=== PATIENT | male | born 1935 | race Caucasian/White ===

== ENCOUNTER 2016-12-03 10:27 | Observation (INO) ==
--- NOTE | 2016-12-03 10:42 | Emergency Department Note ---
Disposition Clinical Impression: Hypertension Qualifiers: Hypertension type: essential hypertension Qualified Code(s): I10 - Essential ( primary) hypertension Altered mental status Qualifiers: Altered mental status type: unspecified Qualified Code(s): R41.82 - Altered mental status, unspecified Disposition: Admitted As Inpatient Condition: Fair Referrals: Janell Rossi MD [Primary Care Provider] - Forms: ED Satisfaction Letter Time of Disposition: 12:41 Altered Mental Status HPI - General Chief Complaint: ED Altered Mental Status Stated Complaint: AMS Time Seen by Provider: 12/03/16 10:31 Source: patient, EMS Limitations: no limitations Nursing Notes Reviewed: Yes Vital Signs Reviewed: Yes - History of Present Illness HPI Narrative: 81-year-old who apparently this morning woke up was feeling pretty good went to eat developed some confusion and diaphoresis no pain to the back of his head. 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 by: caregiver Pain Severity: moderate Context: unknown Associated symptoms: Reports: headaches - Related Data Home Medications Medication Instructions Recorded Confirmed Atenolol [Tenormin] 50 mg PO DAILY 11/16/15 11/16/15 Cholestyramine 4 gm PO BIDAC 11/16/15 11/16/15 Cyanocobalamin (Vitamin B-12) 1,000 mcg PO DAILY 11/16/15 11/16/15 [Vitamin B12] Ergocalciferol (VITAMIN D2) 2,000 unit PO DAILY 11/16/15 11/16/15 [Vitamin D2] Levothyroxine Sodium [Tirosint] 25 mcg PO DAILY 11/16/15 11/16/15 Paroxetine HCl [Paroxetine] 40 mg PO DAILY 11/16/15 11/16/15 Warfarin [Coumadin] 5 mg PO DAILY 11/16/15 11/16/15 Previous Rx's Medication Instructions Recorded Hydrocodone/Acetaminophen [[place] 1 tab PO Q4H PRN #15 tab 11/16/15 5-325 Tablet] Allergies Allergy/AdvReac Type Severity Reaction Status Date / Time Amoxicillin Allergy See Verified 08/24/15 10:53 Comments Penicillins [PCN] Allergy Rash Verified 09/28/15 10:21 All systems ED: reviewed and negative except as stated. Constitutional: Denies: fever, chills, weakness, weight change Eyes: Denies: eye pain, eye discharge, vision change ENT ED: Denies: ear pain, throat pain, dental pain, hearing loss, epistaxis, congestion, dysphagia Cardiovascular: Denies: chest pain, palpitations, dyspnea on exertion, edema, syncope Respiratory: Denies: cough, dyspnea, wheezes, hemoptysis, stridor Gastrointestinal: Denies: abdominal pain, nausea, vomiting, diarrhea, constipation, hematemesis, melena, hematochezia Genitourinary: Denies: urgency, dysuria, frequency, hematuria Musculoskeletal: Denies: back pain, neck pain, arthralgia, myalgia Integumentary: Denies: rash, abrasion, lesions Neurological: Reports: confusion. Denies: headache, weakness, numbness, paresthesias, abnormal gait, vertigo Psychiatric: Denies: anxiety, depression, suicidal thoughts, homicidal thoughts , auditory hallucinations, visual hallucinations Endocrine: Denies: fatigue Hematological/Lymphatic: Denies: easy bleeding, easy bruising Allergic/Immunologic: Denies: facial swelling, urticaria Past Medical History - Past Medical History Medical history: Reports: atrial fibrillation, cancer, hypertension, other Surgical history: Reports: appendectomy, cholecystectomy, other Psychiatric history: Reports: anxiety, depression - Social History Smoking Status: Never smoker Smokeless Tobacco Status: No Alcohol use: Reports: none Drug use: Reports: none Physical Exam - General Limitations: no limitations General appearance: alert, in no apparent distress - Head Head exam: atraumatic, normocephalic, normal inspection - Eye Eye exam: Present: normal appearance, PERRL, EOMI - ENT ENT exam: normal exam, normal oropharynx, mucous membranes moist - Neck Neck exam: Present: normal inspection, full ROM, trachea midline - Chest Chest inspection: Present: normal inspection, symmetric chest wall rise - Respiratory Respiratory exam: Present: normal lung sounds bilaterally - Cardiovascular Cardiovascular exam: Present: regular rate, irregular rhythm, normal heart sounds - Abdominal Exam Abdominal exam: Present: soft, Non-Tender. Absent: tenderness, distention, guarding, rebound, rigidity - Extremities Exam Extremities exam: Present: normal inspection, full ROM. Absent: tenderness, pedal edema - Expanded Lower Extremity Exam Neurovascular/Tendon exam: Absent: motor deficit, sensory deficit, tendon deficit Gait: not tested/not observed - Back Exam Back exam: Present: normal inspection, full ROM. Absent: tenderness - Neurological Exam Neurological exam: Present: alert, oriented X3 - Psychiatric Psychiatric exam: Present: normal affect, normal mood - Skin Skin exam: Present: warm, dry, intact, normal color Course - Reevaluation(s) Reevaluation #1: 81-year-old who comes in with confusion and elevated blood pressure. Patient was started on a nicardipine drip and his pressure was down from the 190s to 160 systolic 120 down to about 90 diastolic. Mentation seems to be clear now Time: 13:35 - Consultations Consultation #1: Accepted by Dr. Dolan. Time: 13:42 Vital Signs Temperature 98.6 F 12/03/16 10:29 Pulse Rate 86 12/03/16 10:29 Respiratory Rate 18 12/03/16 10:29 Blood Pressure 199/103 12/03/16 10:29 O2 Sat by Pulse Oximetry 99 12/03/16 10:29 Temperature 98.6 F 12/03/16 10:29 Pulse Rate 100 12/03/16 13:30 Respiratory Rate 20 12/03/16 13:30 Blood Pressure 160/83 12/03/16 13:30 O2 Sat by Pulse Oximetry 97 12/03/16 13:30 Oxygen Delivery Oxygen Delivery Room Air Altered Mental Status - Lab Data Lab results reviewed: Yes I reviewed the patient's lab results. Result diagrams: 12/03/16 10:57 12/03/16 10:57 Lab Results 12/03/16 12/03/16 12/03/16 Range/Units 10:57 10:57 10:57 WBC 8.0 (4.3-11.1) K/mcL RBC 4.31 (4.19-5.50) M/mcL Hgb 13.3 (12.9-16.9) g/dL Hct 38.6 (37.5-50.1) % MCV 89.6 (83.0-100.0) fL MCH 30.9 (28.0-33.3) pg MCHC 34.5 (31.6-35.5) g/dL RDW 13.1 (11.5-14.5) % Plt Count 196 (140-400) K/mcL MPV 9.8 (9.4-12.4) fL Immature Gran % 0.5 (0-4) % Seg Neutrophils % 79.3 % Lymphocytes % 11.6 % Monocytes % 5.9 % Eosinophils % 2.1 % Basophils % 0.6 % Neutrophils # 6.4 (1.6-8.9) K/mcL Lymphocytes # 0.9 (0.6-4.6) K/mcL Monocytes # 0.5 (0.0-1.3) K/mcL Eosinophils # 0.2 (0.0-0.6) K/mcL Basophils # 0.1 (0.0-0.2) K/mcL PT 17.5 H (9.4-12.1) Seconds INR 1.6 APTT 30.0 (26.0-36.0) Seconds Sodium 144 (136-145) mEq/L Potassium 2.9 L (3.5-4.5) mEq/L Chloride 108 (98-109) mEq/L Carbon Dioxide 28 (19-29) mEq/L BUN 10 (8-26) mg/dL Creatinine 0.79 (0.72-1.25) mg/dL Est GFR ( Amer) > 60 (> 60) Est GFR (Non-Af Amer) > 60 (> 60) BUN/Creatinine Ratio 13 (6-26) Glucose 105 H (70-99) mg/dL Calculated Osmolality 297 (280-300) Calcium 9.6 (8.6-10.8) mg/dL Total Bilirubin 1.7 H (0.2-1.2) mg/dL Direct Bilirubin 0.6 H (0.0-0.5) mg/dL Indirect Bilirubin 1.1 (0.0-1.2) mg/dL AST 25 (5-34) Units/L ALT 17 (0-55) Units/L Alkaline Phosphatase 76 (38-126) Units/L Troponin I (0-0.03) ng/mL Serum Total Protein 7.2 (6.0-8.3) g/dL Albumin 4.0 (3.5-5.0) g/dL Globulin 3.2 (2.4-3.5) g/dL Albumin/Globulin Ratio 1.3 (1.1-2.2) Urine Color (Yellow) Urine Clarity (Clear) Urine pH (5.0-8.0) pH Units Ur Specific [place] (1.010-1.025) Urine Protein (Neg-Trace) mg/dL Urine Glucose (UA) (Normal) mg/dL Urine Ketones (Negative) mg/dL Urine Blood (Negative) Urine Nitrite (Negative) Urine Bilirubin (Negative) Urine Urobilinogen (Normal) mg/dL Ur Leukocyte Esterase (Negative) Urine Microscopic RBC (0-3) per hpf Urine Microscopic WBC (0-3) per hpf Ur Squamous Epith Cells (None-Few) per lpf Urine Bacteria (None-Few) per hpf Hyaline Casts (None-Few) per lpf Ur Culture Indicated? (NO) Urine Opiates Screen (Nptvcq=646) ng/mL Ur Barbiturates Screen (Cxnbjz=637) ng/mL Ur Phencyclidine Scrn (Cutoff=25) ng/mL Ur Amphetamines Screen (Yegcwj=1589) ng/mL U Benzodiazepines Scrn (Krqddh=908) ng/mL Urine Cocaine Screen (Cutoff= 300) ng/mL U Marijuana (THC) Screen (Cutoff = 50) ng/mL Ethyl Alcohol < 10 (0-10) mg/dL 12/03/16 12/03/16 12/03/16 Range/Units 10:57 12:14 12:14 WBC (4.3-11.1) K/mcL RBC (4.19-5.50) M/mcL Hgb (12.9-16.9) g/dL Hct (37.5-50.1) % MCV (83.0-100.0) fL MCH (28.0-33.3) pg MCHC (31.6-35.5) g/dL RDW (11.5-14.5) % Plt Count (140-400) K/mcL MPV (9.4-12.4) fL Immature Gran % (0-4) % Seg Neutrophils % % Lymphocytes % % Monocytes % % Eosinophils % % Basophils % % Neutrophils # (1.6-8.9) K/mcL Lymphocytes # (0.6-4.6) K/mcL Monocytes # (0.0-1.3) K/mcL Eosinophils # (0.0-0.6) K/mcL Basophils # (0.0-0.2) K/mcL PT (9.4-12.1) Seconds INR APTT (26.0-36.0) Seconds Sodium (136-145) mEq/L Potassium (3.5-4.5) mEq/L Chloride (98-109) mEq/L Carbon Dioxide (19-29) mEq/L BUN (8-26) mg/dL Creatinine (0.72-1.25) mg/dL Est GFR ( Amer) (> 60) Est GFR (Non-Af Amer) (> 60) BUN/Creatinine Ratio (6-26) Glucose (70-99) mg/dL Calculated Osmolality (280-300) Calcium (8.6-10.8) mg/dL Total Bilirubin (0.2-1.2) mg/dL Direct Bilirubin (0.0-0.5) mg/dL Indirect Bilirubin (0.0-1.2) mg/dL AST (5-34) Units/L ALT (0-55) Units/L Alkaline Phosphatase (38-126) Units/L Troponin I 0.01 (0-0.03) ng/mL Serum Total Protein (6.0-8.3) g/dL Albumin (3.5-5.0) g/dL Globulin (2.4-3.5) g/dL Albumin/Globulin Ratio (1.1-2.2) Urine Color Yellow (Yellow) Urine Clarity Cloudy A (Clear) Urine pH 6.0 (5.0-8.0) pH Units Ur Specific [place] 1.023 (1.010-1.025) Urine Protein 30 H (Neg-Trace) mg/dL Urine Glucose (UA) Normal (Normal) mg/dL Urine Ketones Negative (Negative) mg/dL Urine Blood Small H (Negative) Urine Nitrite Negative (Negative) Urine Bilirubin Negative (Negative) Urine Urobilinogen Normal (Normal) mg/dL Ur Leukocyte Esterase Negative (Negative) Urine Microscopic RBC 0-3 (0-3) per hpf Urine Microscopic WBC 3-5 H (0-3) per hpf Ur Squamous Epith Cells Many H (None-Few) per lpf Urine Bacteria None Seen (None-Few) per hpf Hyaline Casts None Seen (None-Few) per lpf Ur Culture Indicated? NO (NO) Urine Opiates Screen Negative (Zxobur=950) ng/mL Ur Barbiturates Screen Negative (Kmibdx=188) ng/mL Ur Phencyclidine Scrn Negative (Cutoff=25) ng/mL Ur Amphetamines Screen Negative (Zsjqkk=5669) ng/mL U Benzodiazepines Scrn Negative (Ptfidq=094) ng/mL Urine Cocaine Screen Negative (Cutoff= 300) ng/mL U Marijuana (THC) Screen Negative (Cutoff = 50) ng/mL Ethyl Alcohol (0-10) mg/dL - Radiology Data Radiology results reviewed: Yes I reviewed the patient's radiology results. Chest X-Ray 12/03/16 10:38 IMPRESSION: No acute cardiopulmonary disease D/ / Dami Lovell MD / Dami Lovell MD Interpreting Provider: Dami Lovell MD Head CT 12/03/16 10:39 IMPRESSION: 1. No acute intracranial abnormality. 2. Moderate to severe chronic small vessel ischemic changes. D/ / Dami Lovell MD / Dami Lovell MD Interpreting Provider: Dami Lovell MD - EKG Data EKG attestation: Yes I reviewed and interpreted this EKG. Rhythm: A.Fib Interpretation: no acute changes TPA Checklist - Eligibilty for IV tPA 1. LKW equal to or less than 4.5 hours be before treatment: Yes 2. Clinical diagnosis of ischemic stroke causing deficit: No - LKW: 3-4.5 hrs Add. Warnings/Precautions Patient/family understanding: The patient/family members have been counseled and understood the risk, benefit , and alternatives of treatment. Critical Care Time Critical Care Time: Yes Total Critical Care Time: 30 Attestation: The high probability of a clinically significant, sudden or life threatening deterioration of the [neurological cardiovascular] system(s) required my full and direct attention, intervention and personal management. The aggregate critical care time was [30] minutes. This time is in addition to time spent performing reported procedures but includes the following: [x] Data Review and interpretation [x] Patient assessment and monitoring of vital signs [x] Documentation [x] Medication orders and management
[2016-12-03 11:11] LABS: Basophils # 0.1 K/mcL (0.0-0.2); Basophils % 0.6 %; Eosinophils # 0.2 K/mcL (0.0-0.6); Eosinophils % 2.1 %; Hematocrit 38.6 % (37.5-50.1); Hemoglobin 13.3 g/dL (12.9-16.9); Immature Granulocytes % 0.5 % (0-4); Lymphocytes # 0.9 K/mcL (0.6-4.6); Lymphocytes % 11.6 %; Mean Corpuscular HGB Conc 34.5 g/dL (31.6-35.5); Mean Corpuscular Hemoglobin 30.9 pg (28.0-33.3); Mean Corpuscular Volume 89.6 fL (83.0-100.0); Mean Platelet Volume 9.8 fL (9.4-12.4); Monocytes # 0.5 K/mcL (0.0-1.3); Monocytes % 5.9 %; Neutrophils # 6.4 K/mcL (1.6-8.9); Platelet Count 196 K/mcL (140-400); Red Blood Count 4.31 M/mcL (4.19-5.50); Red Cell Distribution Width 13.1 % (11.5-14.5); Segmented Neutrophils % 79.3 %
[2016-12-03 11:16] LABS: INR 1.6; Prothrombin Time 17.5 Seconds (9.4-12.1)
[2016-12-03 11:25] LABS: Alanine Aminotransferase 17 Units/L (0-55); Albumin/Globulin Ratio 1.3 (1.1-2.2); Alkaline Phosphatase 76 Units/L (38-126); Aspartate Amino Transferase 25 Units/L (5-34); BUN/Creatinine Ratio 13 (6-26); Bilirubin,Direct 0.6 mg/dL (0.0-0.5); Bilirubin,Indirect 1.1 mg/dL (0.0-1.2); Bilirubin,Total 1.7 mg/dL (0.2-1.2); Blood Urea Nitrogen 10 mg/dL (8-26); Calcium 9.6 mg/dL (8.6-10.8); Carbon Dioxide 28 mEq/L (19-29); Chloride 108 mEq/L (98-109); Ethanol < 10 mg/dL (0-10); Globulin 3.2 g/dL (2.4-3.5); Glucose 105 mg/dL (70-99); Osmolality,Calculated 297 (280-300); Potassium 2.9 mEq/L (3.5-4.5); Sodium 144 mEq/L (136-145); Total Protein 7.2 g/dL (6.0-8.3); eGFR For African Americans > 60 (> 60); eGFR For Non-African Americans > 60 (> 60)
[2016-12-03] MEDS ORDERED: niCARdipine 20 MG/200 ML MLS IVC SCH (12:15)
[2016-12-03 12:23] LABS: Bilirubin,Urine Negative (Negative); Blood,Urine Small (Negative); Clarity,Urine Cloudy (Clear); Color,Urine Yellow (Yellow); Glucose,Urine (UA) Normal (Normal); Ketones,Urine Negative (Negative); Leukocyte Esterase,Urine Negative (Negative); Nitrite,Urine Negative (Negative); Protein,Urine 30 mg/dL (Neg-Trace); Specific Gravity,Urine 1.023 (1.010-1.025); Urobilinogen,Urine Normal (Normal)
[2016-12-03 12:26] LABS: Bacteria,Urine None Seen per hpf (None-Few); Hyaline Casts,Urine None Seen per lpf (None-Few); RBC,Urine 0-3 per hpf (0-3); Squamous Epithelial Cell,Urine Many per lpf (None-Few)
[2016-12-03 12:28] LABS: Amphetamine Screen,Urine Negative ng/mL (Cutoff=1000); Barbiturate Screen,Urine Negative ng/mL (Cutoff=200); Benzodiazepines Screen,Urine Negative ng/mL (Cutoff=200); Cannabinoid Screen,Urine Negative ng/mL (Cutoff = 50); Cocaine Screen,Urine Negative ng/mL (Cutoff= 300); Opiate Screen,Urine Negative ng/mL (Cutoff=300); Phencyclidine Screen,Urine Negative ng/mL (Cutoff=25)
[2016-12-03] MEDS ORDERED: Acetaminophen 325 MG TABLET PO PRN (14:31)
[2016-12-03] MEDS ORDERED: Naloxone 0.4 MG/ML INJ IVP PRN (14:31)
--- NOTE | 2016-12-03 15:13 | Internal Med History&Physical ---
<Bere Vasques - Last Filed: 12/03/16 15:35> Date of Encounter: 12/03/16 Time of Encounter: 15:01 Assessment and Plan (1) Hypertensive urgency Current visit: Yes Status: Acute known hx HTN, reports medication compliant. SBPs in 200s upon arrival with reported altered mental status (suspect patient at baseline with dementia). Nicardipine started in ED with significant improvement in BP. Give home dose BB now, wean nicardipine as able. (2) Encephalopathy acute Current visit: Yes Status: Acute with reported confusion on arrival. Alert and oriented to self, place and situation on my exam. Son at bedside and patient's mentation is at baseline. Has known dementia. Suspect hypertensive encephalopathy with underlying dementia. Head CT, UA, UDS neagtive. With hx of a-fib and sub therapeutic INR, check Brain MRI and carotid Doppler. Ammonia level pending (3) Hypokalemia Current visit: Yes Status: Acute K 2.9, replaced. No EKG changes. Replaced. Monitor repeat potassium level (4) Atrial fibrillation Current visit: Yes Status: Acute per hx. Rate controlled. Cont home BB, INR sub-therapeutic. Discussed with Dr. Dolan and no need to bridge. Pharmacy to dose couamdin Qualifiers: Atrial fibrillation type: chronic Qualified Code(s): I48.2 - Chronic atrial fibrillation (5) Headache Current visit: Yes Status: Acute acute on chronic per patient. Neurologically intact. Head CT negative, brain MRI pending. PRN tylenol for now. Qualifiers: Headache type: tension-type Intractability: not intractable Qualified Code(s): G44.209 - Tension-type headache, unspecified, not intractable (6) Dementia Current visit: Yes Status: Acute per hx. Head CT with moderate to severe microvascular changes. Suspect mentation is at baseline. Cont Aricept. Qualifiers: Dementia type: unspecified type Qualified Code(s): F03.90 - Unspecified dementia without behavioral disturbance (7) DVT prophylaxis Current visit: Yes Status: Acute Coumadin Internal Medicine - H&P: HPI Chief complaint: headache Admitted From: Home History of present illness: Mr. Medina is a 81 year old male HTN, atrial fibrillation on Coumadin and dementia who presented to [facility] on 12/03/2016 with complaints of headache. He was found to be in hypertensive urgency with worsening confusion. He was placed in observation status for BP control and CVA work-up. Information obtained from chart review, patient report and son at bedside (although patient is confused and a does not provide details). Per patient, he was started on new medication ( not sure which one) and was told "if you have any problems go to hospital". Son at bedside and not sure what medication patient is referring. Patient says after he took medicine last night he developed a headache, although he says hes had the headache off an for years. Says he took medicine again today and developed another headache. Headache is in the occipital area, radiates to entire head, does not rate pain, says headache subsides on own. Reports blurred and blurry vision earlier today. No CP, no SOB Past Med Surg Social Fam HX - Past Medical History Medical history: atrial fibrillation, cancer, hypertension, other Psychiatric history: anxiety, depression - Past Surgical History Surgical History: appendectomy, cholecystectomy, other - Social History Smoking Status: Never smoker Smokeless Tobacco Status: No Alcohol use: none Drug use: none - Additional Family History Additional family history: reviewed and non-contributory Internal Medicine - H&P: Meds Atenolol [Tenormin] 50 mg PO DAILY 11/16/15 [History] Cholestyramine 4 gm PO BIDAC 11/16/15 [History] Levothyroxine Sodium [Tirosint] 25 mcg PO DAILY 11/16/15 [History] Paroxetine HCl [Paroxetine] 40 mg PO DAILY 11/16/15 [History] Warfarin [Coumadin] 5 mg PO AD 11/16/15 [History] Donepezil [Aricept] 10 mg PO DAILY 12/03/16 [History] Allergies Amoxicillin Allergy (Verified 12/03/16 13:59) Rash Penicillins [PCN] Allergy (Verified 09/28/15 10:21) Rash All Systems PM: A 10-system review of systems was performed and is negative for pertinent findings except as documented above in the HPI. - Constitutional Constitutional: no chills, no fever(s), no night sweats - EENT Eyes: blurry vision, no change in vision, no discharge, no pain, no photophobia Ears: no ear discharge, no ear pain, no tinnitus Nose, mouth and throat: no dysphagia, no nasal discharge, no neck pain, no sore throat - Cardiovascular Cardiovascular ROS IM: no chest pain, no diaphoresis, no dyspnea, no lightheadedness, no palpitations, no syncope - Respiratory Respiratory: no cough, no dyspnea, no wheezing, no excessive phlegm production - Gastrointestinal Gastrointestinal: no abdominal pain, no diarrhea, no hematemesis, no hematochezia, no melena, no nausea, no vomiting - Musculoskeletal Musculoskeletal ROS IM: no numbness, no tingling - Integumentary Integumentary IM: no rash, no unusual bruising - Neurological Neurological ROS: headache(s), no confusion, no convulsions, no focal weakness, no numbness, no tingling, no tremor(s) - Hematologic/Lymphatic Hematologic/Lymphatic: no easy bruising - Constitutional Vitals: Temp Pulse Resp BP Pulse Ox 98.6 F 72 18 148/73 94 12/03/16 10:29 12/03/16 14:27 12/03/16 14:27 12/03/16 14:27 12/03/16 14:27 General appearance: Present: A&O X 2, no acute distress - Head Head exam: Present: atraumatic, normocephalic - Eye Eye exam: Present: PERRL, conjuntiva pink, sclera anicteric Pupils: Present: PERRL - Neck Neck exam general surgery: Present: supple, trachea midline. Absent: lymphadenopathy - Respiratory Respiratory exam: Present: CTAB. Absent: accessory muscle use, rales, rhonchi, wheezes - Cardiovascular Cardiovascular exam: Present: irregular rhythm, +S1, +S2. Absent: diastolic murmur, gallop, rubs, systolic murmur - GI/Abdominal GI/Abdominal exam: Present: normal bowel sounds, soft, no peritoneal signs. Absent: distended, tenderness - Extremities Exam Extremities exam: Present: warm, radial pulses palpable and symetrical. Absent : calf tenderness, cyanotic, pedal edema - Neurological Exam Neurological exam: Present: alert, altered, CN II-XII intact, oriented X3, no focal deficits. Absent: pronater drift, facial droop, speech deficit - Skin Skin exam: Present: dry, intact Internal Med - H&P Results - Labs CBC & Chem 7: 12/03/16 10:57 12/03/16 10:57 Labs: Short CBC 12/03/16 Range/Units 10:57 WBC 8.0 (4.3-11.1) K/mcL Hgb 13.3 (12.9-16.9) g/dL Hct 38.6 (37.5-50.1) % Plt Count 196 (140-400) K/mcL Neutrophils # 6.4 (1.6-8.9) K/mcL BMP 12/03/16 10:57 Sodium 144 Potassium 2.9 L Chloride 108 Carbon Dioxide 28 BUN 10 Creatinine 0.79 Glucose 105 H Calcium 9.6 Cardiac Enzymes 12/03/16 Range/Units 10:57 Troponin I 0.01 (0-0.03) ng/mL Liver Function 12/03/16 Range/Units 10:57 Total Bilirubin 1.7 H (0.2-1.2) mg/dL Direct Bilirubin 0.6 H (0.0-0.5) mg/dL AST 25 (5-34) Units/L ALT 17 (0-55) Units/L Alkaline Phosphatase 76 (38-126) Units/L Albumin 4.0 (3.5-5.0) g/dL Urine 12/03/16 Range/Units 12:14 Urine Color Yellow (Yellow) Urine Clarity Cloudy A (Clear) Urine pH 6.0 (5.0-8.0) pH Units Ur Specific [place] 1.023 (1.010-1.025) Urine Protein 30 H (Neg-Trace) mg/dL Urine Glucose (UA) Normal (Normal) mg/dL - Impressions ITS Impressions Chest X-Ray 12/03/16 10:38 IMPRESSION: No acute cardiopulmonary disease D/ / Dami Lovell MD / Dami Lovell MD Interpreting Provider: Dami Lovell MD Head CT 12/03/16 10:39 IMPRESSION: 1. No acute intracranial abnormality. 2. Moderate to severe chronic small vessel ischemic changes. D/ / Dami Lovell MD / Dami Lovell MD Interpreting Provider: Dami Lovell MD <Radha Dolan - Last Filed: 12/03/16 17:22> Date of Encounter: 12/03/16 Time of Encounter: 16:00 Internal Medicine - H&P: HPI History of present illness: Mr. Medina is a 81 year old male All Systems PM: A 10-system review of systems was performed and is negative for pertinent findings except as documented above in the HPI. - Constitutional Vitals: Temp Pulse Resp BP Pulse Ox 98.6 F 101 20 168/109 97 12/03/16 10:29 12/03/16 16:29 12/03/16 16:29 12/03/16 16:29 12/03/16 16:29 Internal Med - H&P Results - Labs CBC & Chem 7: 12/03/16 10:57 12/03/16 10:57 - Attending Attestation I examined this patient and my medical decision-making was reviewed with the nurse practitioner. I agree with the documented history of present illness, review of systems, past medical, surgical social and family histories and examination findings, disposition and treatment plan as described above except to any changes set forth below. 81-year-old male patient who appears to be having underlying history of dementia , hypertension, atrial fibrillation presented to the ER with complaints of confusion that began early this morning. On arrival to ER, systolic blood pressure was in the 200s. CT scan of the head did not show any acute bleed. Patient was started on treatment for hypertensive encephalopathy with intravenous nicardipine with improvement in his symptoms. Presently he is feeling much better. Denies any chest pain. No nausea or vomiting. Patient is awake and alert. Oriented 2. Cardiovascular examination shows normal S1 and S2. Neurologic examination shows normal strength and sensation with normal cranial nerves. deficits. Hypertensive encephalopathy: Continue IV nicardipine drip. High risk for complications due to use of intravenous nicardipine. Wean as blood pressure improves. Dementia: Patient does appear to have underlying dementia and CT scan of the head shows chronic microvascular changes. No acute stroke. Continue Aricept Hypokalemia: Will replete. Atrial fibrillation: Rate controlled. Subtherapeutic INR. Continue Coumadin. Target INR 2-3. Headache: We will treat symptomatically. MRI for further evaluation.
[2016-12-03] MEDS ORDERED: Warfarin perPT PO PRN (18:00)
[2016-12-03] MEDS: niCARdipine 20 MG/200 ML MLS IVC SCH (18:01)
[2016-12-03] MEDS ORDERED: *HR* Warfarin 5 MG TABLET PO ONE (18:30)
[2016-12-03] MEDS: Cholestyramine 4 GM POWD.PACK PO SCH (20:03)
[2016-12-04] MEDS: niCARdipine 20 MG/200 ML MLS IVC SCH (03:59)
[2016-12-04] MEDS: Levothyroxine 25 MCG TABLET PO SCH (06:13)
--- NOTE | 2016-12-04 07:04 | Carotid Imaging Report ---
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 The left internal carotid artery has a 40-59% stenosis. Recommendations: Risk factor reduction. Follow-up carotid duplex in 1 year. Findings Carotid Duplex: Right: There is nonstenotic plaque in the right mid common carotid artery. There is smooth heterogeneous plaque. There is nonstenotic plaque in the right distal common carotid artery. There is smooth heterogeneous plaque. There is nonstenotic plaque in the right bifurcation. There is smooth heterogeneous plaque. There is nonstenotic plaque in the right proximal internal carotid artery. There is nonstenotic plaque in the right eca. There is smooth heterogeneous plaque. The right mid internal carotid artery was not well visualized. Left: There is nonstenotic plaque in the left mid common carotid artery. There is smooth heterogeneous plaque. There is nonstenotic plaque in the left bifurcation. There is calcified plaque. There is 40-59% stenosis in the left proximal internal carotid artery. Prior Study: No prior study available for comparison. Carotid Results Right PSV EDV Assessment Proximal CCA 94 0 Normal Mid CCA 99 8 Non Stenotic Plaque Distal CCA 87 11 Non Stenotic Plaque Bifurcation 81 8 Non Stenotic Plaque Proximal ICA 66 9 Non Stenotic Plaque Mid ICA 75 15 Not Well Visualized Distal ICA 74 18 Normal ECA 111 1 Non Stenotic Plaque Vertebral Artery 61 9 Antegrade Flow Left PSV EDV Assessment Proximal CCA 105 11 Normal Mid CCA 87 9 Non Stenotic Plaque Distal CCA 84 9 Normal Bifurcation 106 12 Non Stenotic Plaque Proximal ICA 124 21 40-59% stenosis Mid ICA 56 10 Normal Distal ICA 63 13 Normal ECA 156 0 Non Stenotic Plaque Vertebral Artery 50 9 Antegrade Flow Ratio's Right ICA/CCA Ratio: 0.76 ICA/CCA Values: 75/99 Left ICA/CCA Ratio: 1.43 ICA/CCA Values: 124/87 Updated by Miguel Caruso MD on 12/04/2016 6:59:02 AM electronically signed on 12/04/2016 6:59:37 AM with status of Final
[2016-12-04 07:09] LABS: Prothrombin Time 21.6 Seconds (9.4-12.1)
[2016-12-04 07:15] LABS: Basophils % 0.5 %; Eosinophils # 0.1 K/mcL (0.0-0.6); Eosinophils % 0.9 %; Hematocrit 38.8 % (37.5-50.1); Hemoglobin 13.6 g/dL (12.9-16.9); Immature Granulocytes % 0.2 % (0-4); Lymphocytes # 1.3 K/mcL (0.6-4.6); Lymphocytes % 14.8 %; Mean Corpuscular HGB Conc 35.1 g/dL (31.6-35.5); Mean Corpuscular Hemoglobin 31.3 pg (28.0-33.3); Mean Corpuscular Volume 89.2 fL (83.0-100.0); Mean Platelet Volume 10.1 fL (9.4-12.4); Monocytes # 0.7 K/mcL (0.0-1.3); Monocytes % 7.6 %; Neutrophils # 6.7 K/mcL (1.6-8.9); Platelet Count 220 K/mcL (140-400); Red Blood Count 4.35 M/mcL (4.19-5.50); Red Cell Distribution Width 13.2 % (11.5-14.5)
[2016-12-04 07:18] LABS: Alanine Aminotransferase 13 Units/L (0-55); Albumin 3.9 g/dL (3.5-5.0); Albumin/Globulin Ratio 1.2 (1.1-2.2); Alkaline Phosphatase 75 Units/L (38-126); Aspartate Amino Transferase 24 Units/L (5-34); BUN/Creatinine Ratio 12 (6-26); Blood Urea Nitrogen 9 mg/dL (8-26); Calcium 9.3 mg/dL (8.6-10.8); Carbon Dioxide 24 mEq/L (19-29); Chloride 105 mEq/L (98-109); Globulin 3.2 g/dL (2.4-3.5); Glucose 121 mg/dL (70-99); Osmolality,Calculated 288 (280-300); Potassium 3.1 mEq/L (3.5-4.5); Sodium 139 mEq/L (136-145); Total Protein 7.1 g/dL (6.0-8.3); eGFR For African Americans > 60 (> 60); eGFR For Non-African Americans > 60 (> 60)
[2016-12-04] MEDS: Cholestyramine 4 GM POWD.PACK PO SCH ×2 (07:44→16:55)
--- NOTE | 2016-12-04 11:24 | Internal Med Progress Note ---
Date of Encounter: 12/04/16 Time of Encounter: 11:05 - Assessment and plan (1) Hypertensive urgency Current Visit: Yes Status: Acute Assessment and plan: BP better controlled titrating off Nicardipine drip added Hydralazine 10mg IV q6h PRN SBP >150 will add Amlodipine if needed for further BP control goal BP<150/90 Confusion/AMS resolved, mental status back to baseline will obtain PT eval (2) Atrial fibrillation Current Visit: Yes Status: Chronic Assessment and plan: rate controlled with BB anticoagulated with Coumadin INR within therapeutic range pharmacy to dose coumadin and monitor INR (goal INR: 2-3) Qualifiers: Atrial fibrillation type: chronic Qualified Code(s): I48.2 - Chronic atrial fibrillation (3) Dementia Current Visit: Yes Status: Chronic Assessment and plan: continue home medications Qualifiers: Dementia type: unspecified type Qualified Code(s): F03.90 - Unspecified dementia without behavioral disturbance (4) DVT prophylaxis Current Visit: Yes Status: Acute Assessment and plan: anticoagulated with Coumadin (5) Headache Current Visit: Yes Status: Resolved Assessment and plan: resolved at this time likely secondary to htn urgency Qualifiers: Headache type: tension-type Intractability: not intractable Qualified Code(s): G44.209 - Tension-type headache, unspecified, not intractable (6) Hypokalemia Current Visit: Yes Status: Acute Assessment and plan: K supplemented continue to monitor electrolytes and supplement as needed - Subjective Interval history: Patient is an 81y/o male admitted for HTN urgency. Pt seen and examined at bedside. Resting in bed and reports of feeling better. Denies any headache. Pt is oriented to self and place, however not time, he has underlying dementia and as per records, appears to be at baseline. - Constitutional Vitals: Temp Pulse Resp BP Pulse Ox 97.9 F 93 17 137/60 95 12/04/16 10:00 12/04/16 07:45 12/04/16 10:00 12/04/16 10:00 12/04/16 10:00 General appearance: Present: cooperative, A&O X 2, pleasant, no acute distress - Head Head exam: Present: atraumatic, normocephalic - Eye Eye exam: Present: normal appearance, conjuntiva pink, sclera anicteric - Respiratory Respiratory exam: Present: CTAB. Absent: accessory muscle use, rales, rhonchi, wheezes - Cardiovascular Cardiovascular exam: Present: RRR, +S1, +S2. Absent: diastolic murmur, gallop, rubs, systolic murmur - GI/Abdominal GI/Abdominal exam: Present: normal bowel sounds, soft, no peritoneal signs. Absent: distended, tenderness - Extremities Exam Extremities exam: Present: warm, radial pulses palpable and symetrical. Absent : calf tenderness, cyanotic, pedal edema - Neurological Exam Neurological exam: Present: alert - Psychiatric Psychiatric exam: Present: normal affect, normal mood Internal Medicine: Result - Labs CBC & Chem 7: 12/04/16 06:27 12/04/16 06:27 Labs: Short CBC 12/04/16 Range/Units 06:27 WBC 8.8 (4.3-11.1) K/mcL Hgb 13.6 (12.9-16.9) g/dL Hct 38.8 (37.5-50.1) % Plt Count 220 (140-400) K/mcL Neutrophils # 6.7 (1.6-8.9) K/mcL BMP 12/03/16 12/04/16 22:06 06:27 Sodium 139 Potassium 3.1 L 3.1 L Chloride 105 Carbon Dioxide 24 BUN 9 Creatinine 0.76 Glucose 121 H Calcium 9.3 Liver Function 12/04/16 Range/Units 06:27 Total Bilirubin 2.0 H (0.2-1.2) mg/dL AST 24 (5-34) Units/L ALT 13 (0-55) Units/L Alkaline Phosphatase 75 (38-126) Units/L Albumin 3.9 (3.5-5.0) g/dL - ABG Interpretation ABG results: PT/INR, D-dimer PT 21.6 Seconds (9.4-12.1) H 12/04/16 06:27 Consult Discharge Plan - Plan Referrals: Janell Rossi MD [Primary Care Provider] -
[2016-12-04] MEDS: amLODIPine 5 MG TABLET PO SCH (13:00)
--- NOTE | 2016-12-04 14:22 | Electrocardiograph Report ---
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
[2016-12-04] MEDS ORDERED: Haloperidol Lactate 5 MG/ML VIAL IM ONE (16:28)
[2016-12-04] MEDS ORDERED: *HR* Warfarin 3 MG TABLET PO ONE (18:00)
[2016-12-05 04:32] LABS: INR 2.5; Prothrombin Time 28.1 Seconds (9.4-12.1)
[2016-12-05 04:38] LABS: Basophils % 0.6 %; Eosinophils # 0.1 K/mcL (0.0-0.6); Eosinophils % 0.9 %; Hematocrit 35.3 % (37.5-50.1); Hemoglobin 12.6 g/dL (12.9-16.9); Immature Granulocytes % 0.4 % (0-4); Immature Platelets 2.9 % (1.1-6.1); Lymphocytes # 0.9 K/mcL (0.6-4.6); Lymphocytes % 13.5 %; Mean Corpuscular HGB Conc 35.7 g/dL (31.6-35.5); Mean Corpuscular Hemoglobin 31.7 pg (28.0-33.3); Mean Corpuscular Volume 88.7 fL (83.0-100.0); Mean Platelet Volume 9.8 fL (9.4-12.4); Monocytes # 0.6 K/mcL (0.0-1.3); Monocytes % 9.1 %; Platelet Count 190 K/mcL (140-400); Red Blood Count 3.98 M/mcL (4.19-5.50); Red Cell Distribution Width 13.2 % (11.5-14.5); Segmented Neutrophils % 75.5 %
[2016-12-05 04:51] LABS: BUN/Creatinine Ratio 17 (6-26); Blood Urea Nitrogen 12 mg/dL (8-26); Carbon Dioxide 23 mEq/L (19-29); Chloride 110 mEq/L (98-109); Glucose 111 mg/dL (70-99); Magnesium 1.4 mg/dL (1.6-2.6); Osmolality,Calculated 294 (280-300); Phosphorous 2.5 mg/dL (2.3-4.7); Sodium 142 mEq/L (136-145); eGFR For African Americans > 60 (> 60); eGFR For Non-African Americans > 60 (> 60)
[2016-12-05] MEDS: Levothyroxine 25 MCG TABLET PO SCH (06:46)
[2016-12-05] MEDS ORDERED: Potassium Chloride 40 MEQ, Lidocaine 1% 2 ML in D5% in Water 500 ML IVPB ONE (07:49)
[2016-12-05] MEDS ORDERED: Magnesium Sulfate 2 GM in D5% in Water 100 ML IVPB ONE (07:49)
[2016-12-05] MEDS: amLODIPine 5 MG TABLET PO SCH (08:30)
[2016-12-05] MEDS: Cholestyramine 4 GM POWD.PACK PO SCH ×2 (08:30→15:09)
--- NOTE | 2016-12-05 09:48 | Internal Med Progress Note ---
Date of Encounter: 12/05/16 Time of Encounter: 08:50 - Assessment and plan (1) Hypertensive urgency Current Visit: Yes Status: Acute Assessment and plan: BP better controlled off Nicardipine drip Hydralazine 10mg IV q6h PRN SBP >150 Continue Amlodipine 5mg PO qd, will increase Amlodipine to 10mg PO qd if needed for further BP control goal BP<150/90 Confusion/AMS resolved, mental status back to baseline, appears to have sundowning phenomenon-will continue with as needed haldol PT eval recommended ECF, will discuss with patient's son in regards to dispostion, as patient is unsafe discharge to home given underlying dementia and frail status (2) Atrial fibrillation Current Visit: Yes Status: Chronic Assessment and plan: rate controlled with BB anticoagulated with Coumadin INR within therapeutic range pharmacy to dose coumadin and monitor INR (goal INR: 2-3) Qualifiers: Atrial fibrillation type: chronic Qualified Code(s): I48.2 - Chronic atrial fibrillation (3) Dementia Current Visit: Yes Status: Chronic Assessment and plan: continue home medications Qualifiers: Dementia type: unspecified type Qualified Code(s): F03.90 - Unspecified dementia without behavioral disturbance (4) DVT prophylaxis Current Visit: Yes Status: Acute Assessment and plan: anticoagulated with Coumadin (5) Headache Current Visit: Yes Status: Resolved Assessment and plan: resolved at this time likely secondary to htn urgency Qualifiers: Headache type: tension-type Intractability: not intractable Qualified Code(s): G44.209 - Tension-type headache, unspecified, not intractable (6) Hypokalemia Current Visit: Yes Status: Acute Assessment and plan: K supplemented continue to monitor electrolytes and supplement as needed - Subjective Interval history: Patient is an 81y/o male admitted for HTN urgency. Pt seen and examined at bedside. Sitting in chair eating breakfast and reports of feeling better. Reported to be extremely confused yesterday evening/ overnight requiring Haldol, behavior consistent with sundowning. Currently AAO x 3. States he wishes to return to his home however PT eval recommended ECF. Patient's is currently in rehab and he lives alone. Will discuss disposition plans with son today. - Constitutional Vitals: Temp Pulse Resp BP Pulse Ox 98.0 F 71 16 154/82 95 12/05/16 08:30 12/05/16 08:30 12/05/16 08:30 12/05/16 08:30 12/05/16 08:30 General appearance: Present: cooperative, A&O X 3, pleasant, no acute distress - Head Head exam: Present: atraumatic, normocephalic - Eye Eye exam: Present: normal appearance, conjuntiva pink, sclera anicteric - Respiratory Respiratory exam: Present: CTAB. Absent: accessory muscle use, rales, rhonchi, wheezes - Cardiovascular Cardiovascular exam: Present: RRR, +S1, +S2. Absent: diastolic murmur, gallop, rubs, systolic murmur - GI/Abdominal GI/Abdominal exam: Present: normal bowel sounds, soft, no peritoneal signs. Absent: distended, tenderness - Extremities Exam Extremities exam: Present: warm, radial pulses palpable and symetrical. Absent : calf tenderness, pedal edema - Neurological Exam Neurological exam: Present: alert, oriented X3 - Psychiatric Psychiatric exam: Present: normal affect, normal mood Internal Medicine: Result - Labs CBC & Chem 7: 12/05/16 04:12 12/05/16 04:12 Labs: Short CBC 12/05/16 Range/Units 04:12 WBC 6.7 (4.3-11.1) K/mcL Hgb 12.6 L (12.9-16.9) g/dL Hct 35.3 L (37.5-50.1) % Plt Count 190 (140-400) K/mcL Neutrophils # 5.0 (1.6-8.9) K/mcL BMP 12/05/16 04:12 Sodium 142 Potassium 3.0 L Chloride 110 H Carbon Dioxide 23 BUN 12 Creatinine 0.69 L Glucose 111 H Calcium 9.0 - ABG Interpretation ABG results: PT/INR, D-dimer PT 28.1 Seconds (9.4-12.1) H 12/05/16 04:12 Consult Discharge Plan - Plan Referrals: Fabienne Damon CNP [Advanced Practice Nurse] - (SENT WEB REQUEST ON 12-04-16 @ 1060)
[2016-12-05] MEDS ORDERED: amLODIPine 5 MG TABLET PO ONE (14:45)
[2016-12-05] MEDS ORDERED: *HR* Warfarin 2 MG TABLET PO ONE (18:00)
[2016-12-06 06:11] LABS: Basophils % 0.6 %; Eosinophils # 0.2 K/mcL (0.0-0.6); Eosinophils % 2.6 %; Hematocrit 36.8 % (37.5-50.1); Hemoglobin 12.6 g/dL (12.9-16.9); Immature Granulocytes % 0.5 % (0-4); Lymphocytes # 1.1 K/mcL (0.6-4.6); Lymphocytes % 16.1 %; Mean Corpuscular HGB Conc 34.2 g/dL (31.6-35.5); Mean Corpuscular Volume 90.6 fL (83.0-100.0); Mean Platelet Volume 9.9 fL (9.4-12.4); Monocytes # 0.6 K/mcL (0.0-1.3); Monocytes % 9.5 %; Neutrophils # 4.7 K/mcL (1.6-8.9); Platelet Count 185 K/mcL (140-400); Red Blood Count 4.06 M/mcL (4.19-5.50); Red Cell Distribution Width 13.4 % (11.5-14.5); Segmented Neutrophils % 70.7 %
[2016-12-06 06:22] LABS: Prothrombin Time 33.7 Seconds (9.4-12.1)
[2016-12-06] MEDS: Levothyroxine 25 MCG TABLET PO SCH (06:23)
[2016-12-06 06:28] LABS: BUN/Creatinine Ratio 19 (6-26); Blood Urea Nitrogen 14 mg/dL (8-26); Carbon Dioxide 25 mEq/L (19-29); Chloride 110 mEq/L (98-109); Glucose 100 mg/dL (70-99); Magnesium 1.8 mg/dL (1.6-2.6); Osmolality,Calculated 295 (280-300); Phosphorous 2.9 mg/dL (2.3-4.7); Potassium 3.3 mEq/L (3.5-4.5); Sodium 142 mEq/L (136-145); eGFR For African Americans > 60 (> 60); eGFR For Non-African Americans > 60 (> 60)
[2016-12-06] MEDS: Cholestyramine 4 GM POWD.PACK PO SCH (07:30)
[2016-12-06 07:37] VITALS: BP 155/83
[2016-12-06] MEDS ORDERED: amLODIPine 5 MG TABLET PO SCH (09:00)
--- NOTE | 2016-12-06 10:29 | Discharge Summary ---
Date of Encounter: 12/06/16 Time of Encounter: 09:50 - Discharge Diagnosis (1) Hypertensive urgency Priority: Primary Status: Resolved (2) Atrial fibrillation Priority: Secondary Status: Chronic Qualifiers: Atrial fibrillation type: chronic Qualified Code(s): I48.2 - Chronic atrial fibrillation (3) Dementia Priority: Secondary Status: Chronic Qualifiers: Dementia type: unspecified type Qualified Code(s): F03.90 - Unspecified dementia without behavioral disturbance (4) DVT prophylaxis Priority: Secondary Status: Acute (5) Headache Priority: Secondary Status: Resolved Qualifiers: Headache type: tension-type Intractability: not intractable Qualified Code(s): G44.209 - Tension-type headache, unspecified, not intractable (6) Hypokalemia Priority: Secondary Status: Acute - Discharge Medications Prescriptions: amLODIPine [Norvasc] 10 mg PO DAILY #30 tablet Haloperidol [Haldol] 2 mg PO Q8H PRN #20 tablet PRN Reason: Anxiety/agitation Home Medications: Atenolol [Tenormin] 50 mg PO DAILY 11/16/15 [History] Cholestyramine 4 gm PO BIDAC 11/16/15 [History] Levothyroxine Sodium [Tirosint] 25 mcg PO DAILY 11/16/15 [History] Paroxetine HCl [Paroxetine] 40 mg PO DAILY 11/16/15 [History] Donepezil [Aricept] 10 mg PO DAILY 12/03/16 [History] Loratadine 10 mg DAILY 12/03/16 [History] Haloperidol [Haldol] 2 mg PO Q8H PRN #20 tablet 12/06/16 [Rx] Warfarin [Coumadin] 2 mg PO AD #0 12/06/16 [Rx] amLODIPine [Norvasc] 10 mg PO DAILY #30 tablet 12/06/16 [Rx] Allergies/Adverse Reactions: Allergies Amoxicillin Allergy (Verified 12/03/16 13:59) Rash Penicillins [PCN] Allergy (Verified 09/28/15 10:21) Rash Procedures/tests Complete & Pending: Procedures Performed prior 72 hours Category Date Time Status ECG 12 lead ECG [ECG] Routine Y 12/03/16 14:38 Completed Date of admission: 12/03/16 16:02 Primary care physician: Janell Rossi MD Consults: 12/03/16 17:40 Consult to [employer] Administrator [CONS] Routine Reason for SW Consult: discharge planning 12/04/16 08:54 Consult to Occupational Therapy [CONS] Routine Comment: Evaluate, develop and implement POC Reason for Consult: Falls at home, at [place] Consult to Physical Therapy [CONS] Routine Comment: Evaluate, develop and implement POC Reason for Consult: Falls at home, at [place] Discharging clinician: Yeny Abreu Anticipated date of discharge: 12/06/16 - Patient Status Disposition: Transfer SNF Condition: Good Functional capacity at discharge: independent ambulation Overall status at discharge: patient is back to baseline - Discharge Instructions Follow Up With: Fabienne Damon PINKING SEWING MACHINE OPERATOR [Advanced Practice Nurse] - (SENT WEB REQUEST ON 12-04-16 @ [id number]) Additional Instructions: Please follow up with your primary care physician within one week after your discharge from the hospital. Amlodipine 10mg once a day has been added to your home medications. Please take this medication as prescribed. Closely monitor your BP at home. Monitor your INR closely and continue Coumadin 2mg qdaily. Goal INR:2-3 Resume all other home medications as prescribed by your primary care physician - Diet and Activity Activity: as per physical therapy Diet: low salt diet Hospital course: Mr. Medina is a 81 year old male with PMH of Afib on anticoagulation, HTN, dementia who was admitted for hypertensive urgency requiring Nicardipine drip. Patient responded well to therapy with appropriate control of his BP. Amlodipine 10mg qdaily was added to his home meds for better BP control. Given his dementia and his spouse currently being in ECF, it is unsafe for him to be discharged to home alone, therefore he will be discharged to ECF. Patient is currently hemodynamically stable and asymptomatic. He will be discharged to ECF today. - Time Spent with Patient Total time spent providing and/or coordinating discharge services: Greater than 30 minutes - Constitutional Vitals: Temp Pulse Resp BP Pulse Ox 97.8 F 84 18 155/83 97 12/06/16 07:20 12/06/16 07:20 12/06/16 07:20 12/06/16 07:30 12/06/16 07:20 General appearance: Present: cooperative, A&O X 3, pleasant, no acute distress - Head Head exam: Present: atraumatic, normocephalic - Eye Eye exam: Present: normal appearance, conjuntiva pink, sclera anicteric - Respiratory Respiratory exam: Present: CTAB. Absent: accessory muscle use, rales, rhonchi, wheezes - Cardiovascular Cardiovascular exam: Present: irregular rhythm, +S1, +S2. Absent: diastolic murmur, gallop, rubs, systolic murmur - GI/Abdominal GI/Abdominal exam: Present: normal bowel sounds, soft, no peritoneal signs. Absent: distended, tenderness - Extremities Exam Extremities exam: Present: warm, radial pulses palpable and symetrical. Absent : calf tenderness, cyanotic, pedal edema - Neurological Exam Neurological exam: Present: alert, oriented X3 - Psychiatric Psychiatric exam: Present: normal affect, normal mood
--- NOTE | 2016-12-06 10:35 | Physician Discharge Referral ---
ExtendedCare Referral Info Transfer To: [facility] - Diagnosis (1) Hypertensive urgency Priority: Primary Status: Resolved (2) Atrial fibrillation Priority: Secondary Status: Chronic (3) Dementia Priority: Secondary Status: Chronic (4) DVT prophylaxis Priority: Secondary Status: Acute (5) Headache Priority: Secondary Status: Resolved (6) Hypokalemia Priority: Secondary Status: Acute - Transfer Medications Prescriptions: amLODIPine [Norvasc] 10 mg PO DAILY #30 tablet Haloperidol [Haldol] 2 mg PO Q8H PRN #20 tablet PRN Reason: Anxiety/agitation Home Medications: Atenolol [Tenormin] 50 mg PO DAILY 11/16/15 [History] Cholestyramine 4 gm PO BIDAC 11/16/15 [History] Levothyroxine Sodium [Tirosint] 25 mcg PO DAILY 11/16/15 [History] Paroxetine HCl [Paroxetine] 40 mg PO DAILY 11/16/15 [History] Donepezil [Aricept] 10 mg PO DAILY 12/03/16 [History] Loratadine 10 mg DAILY 12/03/16 [History] Haloperidol [Haldol] 2 mg PO Q8H PRN #20 tablet 12/06/16 [Rx] Warfarin [Coumadin] 2 mg PO AD #0 12/06/16 [Rx] amLODIPine [Norvasc] 10 mg PO DAILY #30 tablet 12/06/16 [Rx] Allergies/Adverse Reactions: Allergies Amoxicillin Allergy (Verified 12/03/16 13:59) Rash Penicillins [PCN] Allergy (Verified 09/28/15 10:21) Rash - Respiratory Orders Smoking Cessation: Smoking cessation has been advised. For more information, call the [place] Tobacco Quit Line at 6-165-CUHI-NOW. - Lab Orders Lab Orders: Other (include drug levels w/frequency) (INR daily, to maintain INR : 2-3, ADJUST COUMADIN THERAPY ACCORDINGLY) - Treatments List/Other: Please follow up with your primary care physician within one week after your discharge from the hospital. Amlodipine 10mg once a day has been added to your home medications. Please take this medication as prescribed. Closely monitor your BP at home. Monitor your INR closely and continue Coumadin 2mg qdaily. Goal INR:2-3. ADJUST COUMADIN THERAPY ACCORDINGLY Resume all other home medications as prescribed by your primary care physician CERTIFICATION: I certify that the transfer of the above named patient to an Extended Care Facility is necessary for the continuing treatment of the diagnosis listed. The above information is true and accurate reflection of patient's current condition. Confidential - Redisclosure prohibited without a patient's written consent.
--- NOTE | 2016-12-06 16:41 | Electrocardiograph Report ---
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
== END 2016-12-06 14:15 ==
LOC: 2NNU 10:27 → EMEROO 10:27 → 2NNU 17:27
PROVIDERS: ADMIT Internal Medicine; ATTEND Internal Medicine

== ENCOUNTER 2020-12-27 20:49 | Observation (INO) ==
[2020-12-27 21:25] LABS: Basophils # 0.1 K/mcL (0.0-0.2); Basophils % 0.5 %; Eosinophils # 0.1 K/mcL (0.0-0.6); Hematocrit 28.8 % (37.5-50.1); Hemoglobin 10.2 g/dL (12.9-16.9); Immature Granulocytes % 0.4 % (0-4); Lymphocytes # 1.1 K/mcL (0.6-4.6); Lymphocytes % 9.8 %; Mean Corpuscular HGB Conc 35.4 g/dL (31.6-35.5); Mean Corpuscular Hemoglobin 30.6 pg (28.0-33.3); Mean Corpuscular Volume 86.5 fL (83.0-100.0); Mean Platelet Volume 9.4 fL (9.4-12.4); Monocytes # 0.4 K/mcL (0.0-1.3); Monocytes % 3.7 %; Neutrophils # 9.5 K/mcL (1.6-8.9); Platelet Count 314 K/mcL (140-400); Red Blood Count 3.33 M/mcL (4.19-5.50); Red Cell Distribution Width 13.7 % (11.5-14.5); Segmented Neutrophils % 84.6 %; White Blood Count 11.2 K/mcL (4.3-11.1)
[2020-12-27 21:47] LABS: Albumin 3.2 g/dL (3.5-5.7); Bilirubin,Direct 0.2 mg/dL (0.0-0.2); Bilirubin,Indirect 0.2 mg/dL (0.0-1.0); Bilirubin,Total 0.4 mg/dL (0.3-1.0); Globulin 3.3 g/dL (2.4-3.5); Potassium 2.6 mEq/L (3.5-5.1); Total Protein 6.5 g/dL (6.4-8.9)
[2020-12-27] MEDS ORDERED: 0.9 % Sodium Chloride 1,000 ML IVC ONE (21:47)
[2020-12-27 21:54] LABS: INR 11.8; Prothrombin Time 127.1 Seconds (9.4-12.1)
[2020-12-27 22:11] LABS: Bilirubin,Urine Negative (Negative); Blood,Urine Trace (Negative); Clarity,Urine Clear (Clear); Color,Urine Light-Yellow (Yellow); Glucose,Urine (UA) Normal (Normal); Ketones,Urine Negative (Negative); Leukocyte Esterase,Urine Negative (Negative); Nitrite,Urine Negative (Negative); Protein,Urine Trace mg/dL (Neg-Trace); Specific Gravity,Urine 1.016 (1.010-1.025); Urobilinogen,Urine Normal (Normal); WBC,Urine 0-3 per hpf (0-3)
[2020-12-27] MEDS ORDERED: *HR* Phytonadione 5 MG TABLET PO ONE (22:57)
[2020-12-28] MEDS ORDERED: Naloxone 0.4 MG/ML INJ IVP PRN (00:54)
[2020-12-28] MEDS ORDERED: Acetaminophen 325 MG TABLET PO PRN (00:54)
[2020-12-28] MEDS ORDERED: Ondansetron ODT 4 MG TAB.RAPDIS SL PRN (00:54)
[2020-12-28] MEDS ORDERED: Potassium Chloride 40 MEQ, Lidocaine 1% 2 ML in 0.9 % Sodium Chloride 500 ML IVPB ONE ×2 (01:51→07:00)
[2020-12-28 03:39] LABS: Basophils # 0.1 K/mcL (0.0-0.2); Basophils % 0.6 %; Eosinophils # 0.1 K/mcL (0.0-0.6); Eosinophils % 1.1 %; Hematocrit 28.2 % (37.5-50.1); Hemoglobin 9.3 g/dL (12.9-16.9); Immature Granulocytes % 0.5 % (0-4); Lymphocytes # 0.8 K/mcL (0.6-4.6); Lymphocytes % 8.7 %; Mean Corpuscular Hemoglobin 29.2 pg (28.0-33.3); Mean Corpuscular Volume 88.4 fL (83.0-100.0); Mean Platelet Volume 9.7 fL (9.4-12.4); Monocytes # 0.3 K/mcL (0.0-1.3); Monocytes % 3.5 %; Neutrophils # 7.9 K/mcL (1.6-8.9); Platelet Count 295 K/mcL (140-400); Red Blood Count 3.19 M/mcL (4.19-5.50); Red Cell Distribution Width 13.9 % (11.5-14.5); Segmented Neutrophils % 85.6 %; White Blood Count 9.3 K/mcL (4.3-11.1)
[2020-12-28 03:57] LABS: Creatinine,Urine 28 mg/dL; Sodium, Urine < 10.0 mEq/L
[2020-12-28] MEDS: 0.9 % Sodium Chloride 1,000 ML IVC SCH ×2 (04:00→13:11)
[2020-12-28 04:08] LABS: INR 12.2; Prothrombin Time 131.5 Seconds (9.4-12.1)
[2020-12-28 04:14] LABS: Calcium 7.5 mg/dL (8.6-10.3); Magnesium 1.3 mg/dL (1.6-2.6); Potassium 2.4 mEq/L (3.5-5.1)
[2020-12-28 10:50] LABS: Prothrombin Time 35.6 Seconds (9.4-12.1)
[2020-12-28 10:51] LABS: INR 3.2
[2020-12-28] MEDS ORDERED: D5% in Water 1,000 ML IVC PRN (11:07)
[2020-12-28] MEDS ORDERED: Dextrose Gel 15 GM/37.5 ML TUBE PO PRN ×2 (11:07)
[2020-12-28] MEDS ORDERED: *HR* Dextrose 50 % in Water (Vial) 50 ML VIAL IVP PRN (11:07)
[2020-12-28 11:15] LABS: BUN/Creatinine Ratio 21 (6-26); Blood Urea Nitrogen 28 mg/dL (8-23); Calcium 7.8 mg/dL (8.6-10.3); Carbon Dioxide 19 mEq/L (23-29); Chloride 114 mEq/L (98-107); Glucose 109 mg/dL (70-105); Osmolality,Calculated 300 (280-300); Potassium 3.3 mEq/L (3.5-5.1); Sodium 142 mEq/L (136-145); eGFR For African Americans > 60 (> 60); eGFR For Non-African Americans 51 (> 60)
[2020-12-28] MEDS ORDERED: Insulin LISPRO 300 UNITS/3 ML VIAL SUBQ SCH ×2 (11:30→21:00)
[2020-12-28] MEDS ORDERED: Insulin DETEMIR 100 UNIT/ML X5UNITS SUBQ SCH (21:00)
[2020-12-29 07:14] VITALS: BP 154/60; PULSE 69; TEMP 97.8; O2SAT 98
[2020-12-29 08:06] LABS: Hematocrit 27.9 % (37.5-50.1); Hemoglobin 9.5 g/dL (12.9-16.9); Mean Corpuscular HGB Conc 34.1 g/dL (31.6-35.5); Mean Corpuscular Hemoglobin 30.7 pg (28.0-33.3); Mean Corpuscular Volume 90.3 fL (83.0-100.0); Mean Platelet Volume 9.5 fL (9.4-12.4); Platelet Count 285 K/mcL (140-400); Red Blood Count 3.09 M/mcL (4.19-5.50); Red Cell Distribution Width 14.4 % (11.5-14.5); White Blood Count 7.7 K/mcL (4.3-11.1)
[2020-12-29 08:12] LABS: INR 1.4; Prothrombin Time 15.8 Seconds (9.4-12.1)
[2020-12-29 08:24] LABS: BUN/Creatinine Ratio 20 (6-26); Blood Urea Nitrogen 17 mg/dL (8-23); Calcium 7.5 mg/dL (8.6-10.3); Carbon Dioxide 17 mEq/L (23-29); Chloride 114 mEq/L (98-107); Glucose 87 mg/dL (70-105); Osmolality,Calculated 293 (280-300); Sodium 141 mEq/L (136-145); eGFR For African Americans > 60 (> 60); eGFR For Non-African Americans > 60 (> 60)
[2020-12-29] MEDS ORDERED: Apixaban 5 MG TABLET PO SCH (10:00)
== END 2020-12-29 11:07 | disposition home or self-care (01) ==
LOC: 2ANU 20:49 → EMEROOARM 20:49 → SUATTDRO 23:43 → 2ANU 12-28 01:16
PROVIDERS: ADMIT Student in an Organized Health Care Education/Training Program; ATTEND Family Medicine

== ENCOUNTER 2021-02-26 15:12 | Inpatient (IN) ==
[2021-02-26 17:51] LABS: Basophils % 0.1 %; Eosinophils % 0.2 %; Hematocrit 30.5 % (37.5-50.1); Hemoglobin 9.5 g/dL (12.9-16.9); Immature Granulocytes % 0.6 % (0-4); Lymphocytes # 0.7 K/mcL (0.6-4.6); Mean Corpuscular HGB Conc 31.1 g/dL (31.6-35.5); Mean Corpuscular Hemoglobin 30.5 pg (28.0-33.3); Mean Corpuscular Volume 98.1 fL (83.0-100.0); Monocytes # 0.3 K/mcL (0.0-1.3); Monocytes % 2.7 %; Neutrophils # 11.2 K/mcL (1.6-8.9); Platelet Count 265 K/mcL (140-400); Red Blood Count 3.11 M/mcL (4.19-5.50); Red Cell Distribution Width 20.4 % (11.5-14.5); Segmented Neutrophils % 90.4 %; White Blood Count 12.4 K/mcL (4.3-11.1)
[2021-02-26 17:58] LABS: INR 3.1; Prothrombin Time 34.7 Seconds (9.4-12.1)
[2021-02-26 18:01] LABS: Activated Partial Thrombo Time 35.2 Seconds (26.0-36.0)
[2021-02-26 18:23] LABS: Troponin I 0.04 ng/mL (< 0.04)
[2021-02-26] MEDS ORDERED: Pantoprazole 40 MG VIAL IVP STA (18:23)
[2021-02-26 18:24] LABS: Bacteria,Urine Few per hpf (None-Few); Bilirubin,Urine Negative (Negative); Blood,Urine Small (Negative); Clarity,Urine Clear (Clear); Color,Urine Yellow (Yellow); Glucose,Urine (UA) Normal (Normal); Hyaline Casts,Urine Few per lpf (None Seen); Ketones,Urine Negative (Negative); Leukocyte Esterase,Urine Negative (Negative); Mucus,Urine Few per lpf (None-Few); Nitrite,Urine Negative (Negative); Protein,Urine 30 mg/dL (Neg-Trace); Specific Gravity,Urine 1.019 (1.010-1.025); Squamous Epithelial Cell,Urine Few per hpf (None-Few); Urobilinogen,Urine Normal (Normal); WBC,Urine 0-3 per hpf (0-3)
[2021-02-26 18:27] LABS: Albumin 2.8 g/dL (3.5-5.7); Bilirubin,Direct 0.5 mg/dL (0.0-0.2); Bilirubin,Indirect 0.7 mg/dL (0.0-1.0); Bilirubin,Total 1.2 mg/dL (0.3-1.0); Calcium 8.3 mg/dL (8.6-10.3); Globulin 2.7 g/dL (2.4-3.5); Potassium 4.6 mEq/L (3.5-5.1); Total Protein 5.5 g/dL (6.4-8.9)
[2021-02-26] MEDS ORDERED: Octreotide 400 MCG in 0.9 % Sodium Chloride 100 ML IVC SCH (18:30)
[2021-02-26] MEDS ORDERED: cefTRIAXone 1,000 MG in Water for inj. (sterile) 10 ML IVP ONE (18:42)
[2021-02-26] MEDS ORDERED: 0.9 % Sodium Chloride 1,000 ML IVC ONE (18:43)
[2021-02-26] MEDS ORDERED: Naloxone 0.4 MG/ML INJ IVP PRN (19:59)
[2021-02-26] MEDS: 0.9 % Sodium Chloride 1,000 ML IVC SCH (21:59)
[2021-02-26 22:04] LABS: Influenza A PCR Negative (Negative); Influenza B PCR Negative (Negative); Resp. Syncytial Virus PCR Negative (Negative)
[2021-02-26 22:17] LABS: SARS-CoV-2 by PCR (In House) Negative (Negative)
[2021-02-27 06:27] LABS: Basophils % 0.1 %; Eosinophils % 0.1 %; Hematocrit 28.4 % (37.5-50.1); Hemoglobin 9.3 g/dL (12.9-16.9); Immature Granulocytes % 0.3 % (0-4); Lymphocytes # 0.5 K/mcL (0.6-4.6); Lymphocytes % 3.3 %; Mean Corpuscular HGB Conc 32.7 g/dL (31.6-35.5); Mean Corpuscular Hemoglobin 31.7 pg (28.0-33.3); Mean Corpuscular Volume 96.9 fL (83.0-100.0); Mean Platelet Volume 9.9 fL (9.4-12.4); Monocytes # 0.3 K/mcL (0.0-1.3); Monocytes % 1.7 %; Neutrophils # 14.5 K/mcL (1.6-8.9); Platelet Count 239 K/mcL (140-400); Red Blood Count 2.93 M/mcL (4.19-5.50); Red Cell Distribution Width 20.2 % (11.5-14.5); Segmented Neutrophils % 94.5 %; White Blood Count 15.4 K/mcL (4.3-11.1)
[2021-02-27 06:32] LABS: INR 2.7; Prothrombin Time 30.6 Seconds (9.4-12.1)
[2021-02-27 06:50] LABS: Albumin 2.4 g/dL (3.5-5.7); Bilirubin,Total 2.2 mg/dL (0.3-1.0); Calcium 7.7 mg/dL (8.6-10.3); Globulin 2.5 g/dL (2.4-3.5); Magnesium 1.5 mg/dL (1.6-2.6); Potassium 4.2 mEq/L (3.5-5.1); Total Protein 4.9 g/dL (6.4-8.9); Troponin I 0.03 ng/mL (< 0.04)
[2021-02-27] MEDS: Pantoprazole 40 MG VIAL IVP SCH ×2 (07:00→18:58)
[2021-02-27] MEDS: 0.9 % Sodium Chloride 1,000 ML IVC SCH ×3 (09:22→18:58)
[2021-02-27] MEDS ORDERED: *HR* Phytonadione 5 MG TABLET PO ONE (11:23)
[2021-02-27] MEDS: cefTRIAXone 1,000 MG in Water for inj. (sterile) 10 ML IVP SCH (16:00)
[2021-02-28] MEDS: Pantoprazole 40 MG VIAL IVP SCH ×2 (06:21→17:14)
[2021-02-28 06:27] LABS: Basophils % 0.3 %; Eosinophils # 0.3 K/mcL (0.0-0.6); Eosinophils % 4.3 %; Hematocrit 28.2 % (37.5-50.1); Hemoglobin 8.9 g/dL (12.9-16.9); Immature Granulocytes % 0.4 % (0-4); Lymphocytes # 0.8 K/mcL (0.6-4.6); Lymphocytes % 10.2 %; Mean Corpuscular HGB Conc 31.6 g/dL (31.6-35.5); Mean Corpuscular Hemoglobin 30.9 pg (28.0-33.3); Mean Corpuscular Volume 97.9 fL (83.0-100.0); Mean Platelet Volume 10.4 fL (9.4-12.4); Monocytes # 0.4 K/mcL (0.0-1.3); Neutrophils # 6.3 K/mcL (1.6-8.9); Platelet Count 219 K/mcL (140-400); Red Blood Count 2.88 M/mcL (4.19-5.50); Red Cell Distribution Width 20.2 % (11.5-14.5); Segmented Neutrophils % 79.8 %; White Blood Count 7.9 K/mcL (4.3-11.1)
[2021-02-28 07:56] LABS: Albumin 2.4 g/dL (3.5-5.7); Albumin/Globulin Ratio 1.2 (1.1-2.2); Bilirubin,Indirect 0.6 mg/dL (0.0-1.0); Bilirubin,Total 1.6 mg/dL (0.3-1.0); Calcium 7.5 mg/dL (8.6-10.3); Potassium 3.5 mEq/L (3.5-5.1); Total Protein 4.4 g/dL (6.4-8.9)
[2021-02-28] MEDS: PARoxetine 10 MG TABLET PO SCH (08:00)
[2021-02-28] MEDS: Loratadine 10 MG TABLET PO SCH (08:00)
[2021-02-28] MEDS: Levothyroxine 25 MCG TABLET PO SCH (08:00)
[2021-02-28] MEDS: Cholecalciferol (D-3) 1,000 UNIT (25MCG) TABLET PO SCH (08:00)
[2021-02-28] MEDS: Cyanocobalamin (B-12) 1,000 MCG TABLET PO SCH (08:00)
[2021-02-28] MEDS: cefTRIAXone 1,000 MG in Water for inj. (sterile) 10 ML IVP SCH (08:07)
[2021-02-28] MEDS: atenoloL 50 MG TABLET PO SCH (08:07)
[2021-02-28] MEDS: Ondansetron 4 MG/2 ML VIAL IVP PRN (08:29)
[2021-02-28 09:17] LABS: INR 1.5; Prothrombin Time 16.8 Seconds (9.4-12.1)
[2021-02-28] MEDS ORDERED: *HR* HYDROmorphone (PF) 1 MG/ML SYRINGE IVP PRN (11:59)
[2021-02-28] MEDS ORDERED: *HR* Propofol 200 MG/20 ML VIAL IVP ONE ×2 (12:08→13:14)
[2021-02-28] MEDS ORDERED: Lidocaine -MPF 2% 5 ML VIAL ONE (12:08)
[2021-02-28] MEDS: 0.9 % Sodium Chloride 1,000 ML IVC SCH ×2 (13:24→15:19)
[2021-02-28] MEDS ORDERED: Ondansetron 4 MG/2 ML VIAL ONE (13:25)
[2021-02-28] MEDS ORDERED: SODIUM CHLORIDE/NAHCO3/KCL/PEG 4,000 ML SOLN.RECON PO ONE (15:40)
[2021-02-28] MEDS: Ondansetron 4 MG/2 ML VIAL IVP SCH (17:14)
[2021-02-28 17:40] LABS: Hematocrit 24.2 % (37.5-50.1); Hemoglobin 7.6 g/dL (12.9-16.9)
[2021-03-01] MEDS: Ondansetron 4 MG/2 ML VIAL IVP SCH ×2 (00:34→09:42)
[2021-03-01 02:14] LABS: Basophils % 0.1 %; Hematocrit 22.3 % (37.5-50.1); Hemoglobin 6.9 g/dL (12.9-16.9); Immature Granulocytes % 0.6 % (0-4); Lymphocytes # 0.6 K/mcL (0.6-4.6); Lymphocytes % 8.6 %; Mean Corpuscular HGB Conc 30.9 g/dL (31.6-35.5); Mean Corpuscular Hemoglobin 31.4 pg (28.0-33.3); Mean Corpuscular Volume 101.4 fL (83.0-100.0); Mean Platelet Volume 10.5 fL (9.4-12.4); Monocytes # 0.3 K/mcL (0.0-1.3); Monocytes % 4.2 %; Neutrophils # 5.8 K/mcL (1.6-8.9); Platelet Count 185 K/mcL (140-400); Red Cell Distribution Width 20.6 % (11.5-14.5); Segmented Neutrophils % 86.5 %; White Blood Count 6.7 K/mcL (4.3-11.1)
[2021-03-01 02:30] LABS: Amylase 38 Units/L (29-103); Lipase 67 Units/L (11-82)
[2021-03-01 02:32] LABS: Alanine Aminotransferase 38 Units/L (7-52); Albumin 2.4 g/dL (3.5-5.7); Alkaline Phosphatase 648 Units/L (34-104); Aspartate Amino Transferase 75 Units/L (13-39); BUN/Creatinine Ratio 20 (6-26); Bilirubin,Direct 2.7 mg/dL (0.0-0.2); Bilirubin,Indirect 0.7 mg/dL (0.0-1.0); Bilirubin,Total 3.4 mg/dL (0.3-1.0); Blood Urea Nitrogen 25 mg/dL (8-23); Calcium 7.2 mg/dL (8.6-10.3); Carbon Dioxide 11 mEq/L (23-29); Chloride 116 mEq/L (98-107); Globulin 2.3 g/dL (2.4-3.5); Glucose 129 mg/dL (70-105); Osmolality,Calculated 288 (280-300); Potassium 4.1 mEq/L (3.5-5.1); Sodium 136 mEq/L (136-145); Total Protein 4.7 g/dL (6.4-8.9); eGFR For African Americans > 60 (> 60); eGFR For Non-African Americans 54 (> 60)
[2021-03-01] MEDS: 0.9 % Sodium Chloride 1,000 ML IVC SCH ×2 (06:42→18:18)
[2021-03-01] MEDS: Pantoprazole 40 MG VIAL IVP SCH ×2 (06:42→18:19)
[2021-03-01] MEDS: Cyanocobalamin (B-12) 1,000 MCG TABLET PO SCH (09:30)
[2021-03-01] MEDS: PARoxetine 10 MG TABLET PO SCH (09:30)
[2021-03-01] MEDS: Cholecalciferol (D-3) 1,000 UNIT (25MCG) TABLET PO SCH (09:30)
[2021-03-01] MEDS: Loratadine 10 MG TABLET PO SCH (09:30)
[2021-03-01] MEDS: atenoloL 50 MG TABLET PO SCH (09:30)
[2021-03-01] MEDS: Levothyroxine 25 MCG TABLET PO SCH (09:30)
[2021-03-01] MEDS: cefTRIAXone 1,000 MG in Water for inj. (sterile) 10 ML IVP SCH (09:32)
[2021-03-01] MEDS: Ondansetron 4 MG/2 ML VIAL IVP PRN (09:33)
[2021-03-01] MEDS ORDERED: 0.9 % Sodium Chloride 250 ML ONE (12:49)
[2021-03-01] MEDS ORDERED: Isovue-370 500 ML BOTTLE IVP ONE (16:02)
[2021-03-01 20:15] LABS: Hematocrit 26.4 % (37.5-50.1)
[2021-03-01 20:16] LABS: Hemoglobin 8.5 g/dL (12.9-16.9)
[2021-03-01] MEDS ORDERED: Cyanocobalamin (B-12) 1,000 MCG/ML VIAL SQ ONE (20:45)
[2021-03-01] MEDS ORDERED: Iron Sucrose Complex 400 MG in 0.9 % Sodium Chloride 250 ML IVPB ONE (21:00)
[2021-03-02] MEDS ORDERED: 0.9 % Sodium Chloride 250 ML ONE (01:12)
[2021-03-02] MEDS: Pantoprazole 40 MG VIAL IVP SCH ×2 (05:30→17:19)
[2021-03-02 08:12] LABS: Magnesium 1.4 mg/dL (1.6-2.6)
[2021-03-02 08:24] LABS: Albumin 2.6 g/dL (3.5-5.7); Bilirubin,Direct 1.3 mg/dL (0.0-0.2); Bilirubin,Total 2.3 mg/dL (0.3-1.0); Calcium 7.7 mg/dL (8.6-10.3); Globulin 2.5 g/dL (2.4-3.5); Potassium 3.9 mEq/L (3.5-5.1); Total Protein 5.1 g/dL (6.4-8.9)
[2021-03-02] MEDS ORDERED: Haloperidol Lactate 5 MG/ML VIAL IVP ONE (09:58)
[2021-03-02] MEDS ORDERED: Potassium Phosphate 44 MEQ in 0.9 % Sodium Chloride 250 ML IVPB ONE (10:38)
[2021-03-02] MEDS: Sodium Bicarbonate 75 MEQ in 0.45 % Sodium Chloride 1,000 ML IVC SCH (11:29)
[2021-03-02] MEDS: 0.9 % Sodium Chloride 1,000 ML IVC SCH (11:53)
[2021-03-02] MEDS: Cholecalciferol (D-3) 1,000 UNIT (25MCG) TABLET PO SCH (13:25)
[2021-03-02] MEDS: Cyanocobalamin (B-12) 1,000 MCG TABLET PO SCH (13:25)
[2021-03-02] MEDS: atenoloL 50 MG TABLET PO SCH (13:26)
[2021-03-02] MEDS: Loratadine 10 MG TABLET PO SCH (13:26)
[2021-03-02] MEDS: PARoxetine 10 MG TABLET PO SCH (13:26)
[2021-03-02] MEDS: Levothyroxine 25 MCG TABLET PO SCH (13:26)
[2021-03-02 14:07] LABS: Basophils % 0.1 %; Hemoglobin 11.6 g/dL (12.9-16.9); Immature Granulocytes % 0.7 % (0-4); Lymphocytes # 0.4 K/mcL (0.6-4.6); Lymphocytes % 3.8 %; Mean Corpuscular HGB Conc 31.4 g/dL (31.6-35.5); Mean Corpuscular Volume 98.9 fL (83.0-100.0); Mean Platelet Volume 10.7 fL (9.4-12.4); Monocytes # 0.5 K/mcL (0.0-1.3); Monocytes % 4.9 %; Platelet Count 186 K/mcL (140-400); Red Blood Count 3.74 M/mcL (4.19-5.50); Red Cell Distribution Width 21.2 % (11.5-14.5); Segmented Neutrophils % 90.5 %; White Blood Count 10.2 K/mcL (4.3-11.1)
[2021-03-02 14:09] LABS: Neutrophils # 9.2 K/mcL (1.6-8.9)
[2021-03-02] MEDS: Haloperidol Lactate 5 MG/ML VIAL IVP PRN (19:28)
[2021-03-03] MEDS: Sodium Bicarbonate 75 MEQ in 0.45 % Sodium Chloride 1,000 ML IVC SCH ×2 (01:28→17:24)
[2021-03-03] MEDS: Haloperidol Lactate 5 MG/ML VIAL IVP PRN (04:47)
[2021-03-03] MEDS: Pantoprazole 40 MG VIAL IVP SCH ×2 (04:48→17:24)
[2021-03-03] MEDS: Loratadine 10 MG TABLET PO SCH (09:08)
[2021-03-03] MEDS: Cholecalciferol (D-3) 1,000 UNIT (25MCG) TABLET PO SCH (09:08)
[2021-03-03] MEDS: atenoloL 50 MG TABLET PO SCH (09:09)
[2021-03-03] MEDS: PARoxetine 10 MG TABLET PO SCH (09:09)
[2021-03-03] MEDS: Cyanocobalamin (B-12) 1,000 MCG TABLET PO SCH (09:09)
[2021-03-03] MEDS: Levothyroxine 25 MCG TABLET PO SCH (09:09)
[2021-03-03 19:41] LABS: Basophils % 0.1 %; Eosinophils % 0.2 %; Hematocrit 30.6 % (37.5-50.1); Hemoglobin 10.1 g/dL (12.9-16.9); Immature Granulocytes % 0.5 % (0-4); Lymphocytes # 0.6 K/mcL (0.6-4.6); Lymphocytes % 5.7 %; Mean Corpuscular Hemoglobin 30.8 pg (28.0-33.3); Mean Corpuscular Volume 93.3 fL (83.0-100.0); Mean Platelet Volume 11.3 fL (9.4-12.4); Monocytes # 0.6 K/mcL (0.0-1.3); Monocytes % 5.7 %; Neutrophils # 9.8 K/mcL (1.6-8.9); Nucleated Red Blood Cells 0.2 /100 WBC (0); Platelet Count 171 K/mcL (140-400); Red Blood Count 3.28 M/mcL (4.19-5.50); Segmented Neutrophils % 87.8 %; White Blood Count 11.2 K/mcL (4.3-11.1)
[2021-03-03 20:00] LABS: Calcium 7.7 mg/dL (8.6-10.3); Magnesium 1.6 mg/dL (1.6-2.6); Potassium 3.7 mEq/L (3.5-5.1)
[2021-03-04 02:51] LABS: Basophils % 0.1 %; Eosinophils % 0.1 %; Hematocrit 32.3 % (37.5-50.1); Hemoglobin 10.2 g/dL (12.9-16.9); Immature Granulocytes % 0.5 % (0-4); Lymphocytes # 0.7 K/mcL (0.6-4.6); Lymphocytes % 5.8 %; Mean Corpuscular HGB Conc 31.6 g/dL (31.6-35.5); Mean Corpuscular Hemoglobin 31.3 pg (28.0-33.3); Mean Corpuscular Volume 99.1 fL (83.0-100.0); Monocytes # 0.8 K/mcL (0.0-1.3); Monocytes % 6.2 %; Platelet Count 167 K/mcL (140-400); Red Blood Count 3.26 M/mcL (4.19-5.50); Red Cell Distribution Width 23.2 % (11.5-14.5); Segmented Neutrophils % 87.3 %; White Blood Count 12.3 K/mcL (4.3-11.1)
[2021-03-04 02:59] LABS: Neutrophils # 10.7 K/mcL (1.6-8.9)
[2021-03-04 03:42] LABS: Potassium 3.7 mEq/L (3.5-5.1)
[2021-03-04 03:43] LABS: Calcium 7.5 mg/dL (8.6-10.3)
[2021-03-04] MEDS: Sodium Bicarbonate 75 MEQ in 0.45 % Sodium Chloride 1,000 ML IVC SCH ×2 (04:22→20:27)
[2021-03-04] MEDS: Pantoprazole 40 MG VIAL IVP SCH (05:46)
[2021-03-04] MEDS: Cyanocobalamin (B-12) 1,000 MCG TABLET PO SCH (09:30)
[2021-03-04] MEDS: Cholecalciferol (D-3) 1,000 UNIT (25MCG) TABLET PO SCH (09:30)
[2021-03-04] MEDS: Loratadine 10 MG TABLET PO SCH (09:31)
[2021-03-04] MEDS: Levothyroxine 25 MCG TABLET PO SCH (10:12)
[2021-03-04] MEDS: PARoxetine 10 MG TABLET PO SCH (10:12)
[2021-03-04] MEDS: atenoloL 50 MG TABLET PO SCH (10:12)
[2021-03-04] MEDS ORDERED: MethylPREDNISolone 40 MG/ML VIAL IVP ONE (16:23)
[2021-03-05 06:19] LABS: Hematocrit 29.5 % (37.5-50.1); Hemoglobin 9.5 g/dL (12.9-16.9); Immature Granulocytes % 0.4 % (0-4); Lymphocytes # 0.6 K/mcL (0.6-4.6); Lymphocytes % 4.8 %; Mean Corpuscular HGB Conc 32.2 g/dL (31.6-35.5); Mean Corpuscular Hemoglobin 30.9 pg (28.0-33.3); Mean Corpuscular Volume 96.1 fL (83.0-100.0); Mean Platelet Volume 11.3 fL (9.4-12.4); Monocytes # 0.4 K/mcL (0.0-1.3); Monocytes % 3.1 %; Neutrophils # 12.2 K/mcL (1.6-8.9); Platelet Count 160 K/mcL (140-400); Red Blood Count 3.07 M/mcL (4.19-5.50); Red Cell Distribution Width 22.5 % (11.5-14.5); Segmented Neutrophils % 91.7 %; White Blood Count 13.3 K/mcL (4.3-11.1)
[2021-03-05 06:35] LABS: Calcium 7.5 mg/dL (8.6-10.3); Potassium 3.5 mEq/L (3.5-5.1)
[2021-03-05] MEDS: atenoloL 50 MG TABLET PO SCH (09:26)
[2021-03-05] MEDS: amLODIPine 5 MG TABLET PO SCH (09:27)
[2021-03-05] MEDS: Cyanocobalamin (B-12) 1,000 MCG TABLET PO SCH (09:27)
[2021-03-05] MEDS: PARoxetine 10 MG TABLET PO SCH (09:27)
[2021-03-05] MEDS: Levothyroxine 25 MCG TABLET PO SCH (09:27)
[2021-03-05] MEDS: Cholecalciferol (D-3) 1,000 UNIT (25MCG) TABLET PO SCH (09:28)
[2021-03-05] MEDS: Loratadine 10 MG TABLET PO SCH (09:28)
[2021-03-05] MEDS ORDERED: Isovue-370 500 ML BOTTLE IVP ONE (10:15)
[2021-03-05] MEDS: Sodium Bicarbonate 75 MEQ in 0.45 % Sodium Chloride 1,000 ML IVC SCH (13:06)
[2021-03-06] MEDS: Sodium Bicarbonate 75 MEQ in 0.45 % Sodium Chloride 1,000 ML IVC SCH (04:04)
[2021-03-06 06:09] LABS: Basophils % 0.1 %; Eosinophils # 0.1 K/mcL (0.0-0.6); Eosinophils % 0.6 %; Hematocrit 30.3 % (37.5-50.1); Hemoglobin 9.8 g/dL (12.9-16.9); Immature Granulocytes % 0.3 % (0-4); Lymphocytes % 9.1 %; Mean Corpuscular HGB Conc 32.3 g/dL (31.6-35.5); Mean Corpuscular Hemoglobin 31.1 pg (28.0-33.3); Mean Corpuscular Volume 96.2 fL (83.0-100.0); Mean Platelet Volume 11.5 fL (9.4-12.4); Monocytes # 0.7 K/mcL (0.0-1.3); Monocytes % 6.3 %; Neutrophils # 8.9 K/mcL (1.6-8.9); Nucleated Red Blood Cells 0.2 /100 WBC (0); Platelet Count 115 K/mcL (140-400); Red Blood Count 3.15 M/mcL (4.19-5.50); Red Cell Distribution Width 22.7 % (11.5-14.5); Segmented Neutrophils % 83.6 %; White Blood Count 10.6 K/mcL (4.3-11.1)
[2021-03-06 07:02] LABS: Calcium 7.5 mg/dL (8.6-10.3); Potassium 3.2 mEq/L (3.5-5.1)
[2021-03-06] MEDS ORDERED: Potassium Chloride Elixir 20 MEQ/15 ML UDC PO ONE (07:36)
[2021-03-06] MEDS: Levothyroxine 25 MCG TABLET PO SCH (08:13)
[2021-03-06] MEDS: atenoloL 50 MG TABLET PO SCH (13:38)
[2021-03-06] MEDS: PARoxetine 10 MG TABLET PO SCH (14:58)
[2021-03-06] MEDS: Cyanocobalamin (B-12) 1,000 MCG TABLET PO SCH (14:59)
[2021-03-06] MEDS: Loratadine 10 MG TABLET PO SCH (14:59)
[2021-03-06] MEDS: amLODIPine 5 MG TABLET PO SCH (14:59)
[2021-03-06] MEDS: Cholecalciferol (D-3) 1,000 UNIT (25MCG) TABLET PO SCH (14:59)
[2021-03-07 02:54] LABS: Eosinophils # 0.1 K/mcL (0.0-0.6); Eosinophils % 0.8 %; Hematocrit 30.8 % (37.5-50.1); Hemoglobin 9.8 g/dL (12.9-16.9); Immature Granulocytes % 0.2 % (0-4); Lymphocytes # 0.7 K/mcL (0.6-4.6); Mean Corpuscular HGB Conc 31.8 g/dL (31.6-35.5); Mean Corpuscular Hemoglobin 30.8 pg (28.0-33.3); Mean Corpuscular Volume 96.9 fL (83.0-100.0); Mean Platelet Volume 10.8 fL (9.4-12.4); Monocytes # 0.4 K/mcL (0.0-1.3); Monocytes % 4.5 %; Neutrophils # 7.5 K/mcL (1.6-8.9); Nucleated Red Blood Cells 0.3 /100 WBC (0); Platelet Count 134 K/mcL (140-400); Red Blood Count 3.18 M/mcL (4.19-5.50); Red Cell Distribution Width 21.9 % (11.5-14.5); Segmented Neutrophils % 86.5 %; White Blood Count 8.7 K/mcL (4.3-11.1)
[2021-03-07 03:08] LABS: Calcium 7.3 mg/dL (8.6-10.3); Potassium 2.9 mEq/L (3.5-5.1)
[2021-03-07] MEDS: atenoloL 50 MG TABLET PO SCH (07:56)
[2021-03-07] MEDS: PARoxetine 10 MG TABLET PO SCH (07:56)
[2021-03-07] MEDS: Cholecalciferol (D-3) 1,000 UNIT (25MCG) TABLET PO SCH (07:56)
[2021-03-07] MEDS: amLODIPine 5 MG TABLET PO SCH (07:56)
[2021-03-07] MEDS: Loratadine 10 MG TABLET PO SCH (07:57)
[2021-03-07] MEDS: Levothyroxine 25 MCG TABLET PO SCH (07:57)
[2021-03-07] MEDS: Cyanocobalamin (B-12) 1,000 MCG TABLET PO SCH (07:57)
[2021-03-07] MEDS ORDERED: Potassium Chloride 40 MEQ, Lidocaine 1% 2 ML in 0.9 % Sodium Chloride 500 ML IVPB ONE (09:26)
[2021-03-07] MEDS: 0.9 % Sodium Chloride 1,000 ML IVC SCH (14:25)
[2021-03-07] MEDS: Magic Mouthwash 10 ML UD Cup PO SCH ×2 (14:25→18:42)
[2021-03-07] MEDS: Acyclovir 200 MG CAPSULE PO SCH ×2 (14:45→20:43)
[2021-03-08 06:02] LABS: BUN/Creatinine Ratio 16 (6-26); Blood Urea Nitrogen 19 mg/dL (8-23); Calcium 7.1 mg/dL (8.6-10.3); Carbon Dioxide 19 mEq/L (23-29); Chloride 115 mEq/L (98-107); Glucose 103 mg/dL (70-105); Magnesium 1.2 mg/dL (1.6-2.6); Osmolality,Calculated 297 (280-300); Potassium 3.9 mEq/L (3.5-5.1); Sodium 142 mEq/L (136-145); eGFR For African Americans > 60 (> 60); eGFR For Non-African Americans 58 (> 60)
[2021-03-08] MEDS: Loratadine 10 MG TABLET PO SCH (08:26)
[2021-03-08] MEDS: Cholecalciferol (D-3) 1,000 UNIT (25MCG) TABLET PO SCH (08:26)
[2021-03-08] MEDS: PARoxetine 10 MG TABLET PO SCH (08:26)
[2021-03-08] MEDS: atenoloL 50 MG TABLET PO SCH (08:27)
[2021-03-08] MEDS: Acyclovir 200 MG CAPSULE PO SCH ×3 (08:27→19:35)
[2021-03-08] MEDS: amLODIPine 5 MG TABLET PO SCH (08:27)
[2021-03-08] MEDS: Levothyroxine 25 MCG TABLET PO SCH (08:27)
[2021-03-08] MEDS: Cyanocobalamin (B-12) 1,000 MCG TABLET PO SCH (08:27)
[2021-03-08] MEDS: Magic Mouthwash 10 ML UD Cup PO SCH ×3 (08:37→17:58)
[2021-03-08] MEDS: 0.9 % Sodium Chloride 1,000 ML IVC SCH (08:38)
[2021-03-08 16:08] LABS: Adenovirus Not Detected (Not Detect); Bordetella Pertussis Not Detected (Not Detect); Chlamydophila pneumoniae Not Detected (Not Detect); Coronavirus 229E Not Detected (Not Detect); Coronavirus HKU1 Not Detected (Not Detect); Coronavirus NL63 Not Detected (Not Detect); Coronavirus OC43 Not Detected (Not Detect); Human Metapneumovirus Not Detected (Not Detect); Human Rhinovirus/Enterovirus Not Detected (Not Detect); Influenza A Subtype 2009 H1 Not Detected (Not Detect); Influenza B Not Detected (Not Detect); Mycoplasma pneumoniae Not Detected (Not Detect); Parainfluenza Virus 1 Not Detected (Not Detect); Parainfluenza Virus 2 Not Detected (Not Detect); Parainfluenza Virus 3 Not Detected (Not Detect); Parainfluenza Virus 4 Not Detected (Not Detect); Respiratory Syncytial Virus Not Detected (Not Detect); SARS-CoV-2 Not Detected (Not Detect)
[2021-03-09] MEDS: 0.9 % Sodium Chloride 1,000 ML IVC SCH (04:58)
[2021-03-09] MEDS: Magic Mouthwash 10 ML UD Cup PO SCH ×2 (10:46→12:57)
[2021-03-09] MEDS: amLODIPine 5 MG TABLET PO SCH ×2 (10:46→12:56)
[2021-03-09] MEDS: Levothyroxine 25 MCG TABLET PO SCH ×2 (10:46→12:56)
[2021-03-09] MEDS: Acyclovir 200 MG CAPSULE PO SCH ×2 (10:46→12:55)
[2021-03-09] MEDS: Loratadine 10 MG TABLET PO SCH ×2 (10:46→12:56)
[2021-03-09] MEDS: atenoloL 50 MG TABLET PO SCH ×2 (10:46→12:56)
[2021-03-09] MEDS: PARoxetine 10 MG TABLET PO SCH ×2 (10:46→12:55)
[2021-03-09] MEDS: Cyanocobalamin (B-12) 1,000 MCG TABLET PO SCH ×2 (10:46→12:55)
[2021-03-09] MEDS: Cholecalciferol (D-3) 1,000 UNIT (25MCG) TABLET PO SCH ×2 (10:46→12:55)
[2021-03-09 15:50] VITALS: BP 146/66; PULSE 69; TEMP 98.2; O2SAT 91
== END 2021-03-09 19:28 | DRG 919 ==
LOC: EMEROOARM 15:12 → 3BNU 15:12 → OBSVTOIN 19:42 → INTOOBSV 19:42 → SUATTDRO 19:42 → 3BNU 21:01 → SUATTDRO 03-01 13:49
PROVIDERS: ADMIT Internal Medicine; ATTEND Internal Medicine

== ENCOUNTER 2021-03-23 09:40 | Inpatient (IN) ==
[2021-03-23] MEDS ORDERED: 0.9 % Sodium Chloride 500 ML IVC ONE (10:03)
[2021-03-23] MEDS: 0.9 % Sodium Chloride 1,000 ML ONE ×2 (10:14→10:16)
[2021-03-23 10:21] LABS: Basophils % 0.3 %; Hematocrit 35.8 % (37.5-50.1); Hemoglobin 11.7 g/dL (12.9-16.9); Immature Granulocytes % 1.1 % (0-4); Lymphocytes # 1.5 K/mcL (0.6-4.6); Lymphocytes % 13.1 %; Mean Corpuscular HGB Conc 32.7 g/dL (31.6-35.5); Mean Corpuscular Hemoglobin 31.9 pg (28.0-33.3); Mean Corpuscular Volume 97.5 fL (83.0-100.0); Mean Platelet Volume 11.8 fL (9.4-12.4); Monocytes # 0.5 K/mcL (0.0-1.3); Neutrophils # 9.2 K/mcL (1.6-8.9); Platelet Count 154 K/mcL (140-400); Red Blood Count 3.67 M/mcL (4.19-5.50); Red Cell Distribution Width 18.1 % (11.5-14.5); Segmented Neutrophils % 81.5 %; White Blood Count 11.3 K/mcL (4.3-11.1)
[2021-03-23 10:58] LABS: INR 1.4; Prothrombin Time 15.7 Seconds (9.4-12.1)
[2021-03-23 11:00] LABS: Albumin 2.1 g/dL (3.5-5.7); Albumin/Globulin Ratio 0.8 (1.1-2.2); Calcium 7.1 mg/dL (8.6-10.3); Globulin 2.8 g/dL (2.4-3.5); Total Protein 4.9 g/dL (6.4-8.9); Troponin I 0.04 ng/mL (< 0.04)
[2021-03-23 11:01] LABS: Activated Partial Thrombo Time 28.6 Seconds (26.0-36.0)
[2021-03-23 12:15] LABS: Platelet Estimate Normal (Normal)
[2021-03-23 12:16] LABS: Anisocytosis 1+ (Not Present); Large Platelets Present (Not Present)
[2021-03-23] MEDS: 0.9 % Sodium Chloride 1,000 ML IVC ONE ×2 (13:02→14:01)
[2021-03-23 13:10] LABS: Influenza A PCR Negative (Negative); Influenza B PCR Negative (Negative); Resp. Syncytial Virus PCR Negative (Negative)
[2021-03-23 13:25] LABS: SARS-CoV-2 by PCR (In House) Negative (Negative)
[2021-03-23] MEDS ORDERED: Cefepime HCl 1,000 MG in 0.9 % Sodium Chloride Mini Bag 100 ML IVPB STA (14:28)
[2021-03-23] MEDS ORDERED: Albumin 25% 25gram/100mL 25 GM/100 ML IV.SOLN IVPB ONE (15:04)
[2021-03-23 17:55] LABS: Bacteria,Urine Few per hpf (None-Few); Bilirubin,Urine Negative (Negative); Blood,Urine Moderate (Negative); Budding Yeast,Urine Moderate per hpf (None Seen); Clarity,Urine Turbid (Clear); Color,Urine Yellow (Yellow); Glucose,Urine (UA) Normal (Normal); Hyaline Casts,Urine Many per lpf (None Seen); Ketones,Urine Negative (Negative); Leukocyte Esterase,Urine Large (Negative); Mucus,Urine Few per lpf (None-Few); Nitrite,Urine Negative (Negative); PH,Urine 5.5 pH Units (5.0-8.0); Protein,Urine 50 mg/dL (Neg-Trace); RBC,Urine 15-30 per hpf (0-3); Specific Gravity,Urine 1.019 (1.010-1.025); Squamous Epithelial Cell,Urine Few per hpf (None-Few); Urobilinogen,Urine Normal (Normal); WBC,Urine TNTC per hpf (0-3)
[2021-03-23] MEDS ORDERED: Naloxone 0.4 MG/ML INJ IVP PRN (19:43)
[2021-03-23] MEDS ORDERED: *HR* Heparin 5,000 UNIT/ML VIAL SQ SCH (22:00)
[2021-03-23] MEDS ORDERED: Acetaminophen 325 MG TABLET PO PRN (22:49)
[2021-03-23] MEDS ORDERED: Ondansetron 4 MG/2 ML VIAL IVP PRN (22:49)
[2021-03-24] MEDS: 0.9 % Sodium Chloride 1,000 ML IVC SCH ×2 (00:10→15:18)
[2021-03-24 01:12] LABS: Calcium 6.8 mg/dL (8.6-10.3); Magnesium 1.2 mg/dL (1.6-2.6); Potassium 4.3 mEq/L (3.5-5.1)
[2021-03-24] MEDS ORDERED: *HR* Heparin 5,000 UNIT/ML VIAL IVP ONE (04:35)
[2021-03-24] MEDS ORDERED: *HR* Heparin 5,000 UNIT/ML VIAL IVP PRN ×2 (04:35)
[2021-03-24] MEDS ORDERED: Heparin 25,000UNIT/250ML 1/2NS 25,000 UNIT/250 ML IV.SOLN IVC SCH (04:45)
[2021-03-24] MEDS ORDERED: Perflutren Lipid Microsphere 1.3 ML in 0.9 % Sodium Chloride 8.7 ML IVP PRN (05:39)
[2021-03-24 07:17] LABS: Hematocrit 32.1 % (37.5-50.1); Hemoglobin 10.8 g/dL (12.9-16.9); Mean Corpuscular HGB Conc 33.6 g/dL (31.6-35.5); Mean Platelet Volume 12.1 fL (9.4-12.4); Platelet Count 160 K/mcL (140-400); Red Blood Count 3.38 M/mcL (4.19-5.50); White Blood Count 12.9 K/mcL (4.3-11.1)
[2021-03-24 07:20] LABS: Heparin anti-factor XA UFH < 0.04 IU/mL (0.30-0.70); INR 1.5; Prothrombin Time 16.4 Seconds (9.4-12.1)
[2021-03-24 08:04] LABS: Acinetobacter baumannii by PCR Not Detected (Not Detect); Candida albicans by PCR Not Detected (Not Detect); Candida glabrata by PCR Not Detected (Not Detect); Candida krusei by PCR Not Detected (Not Detect); Candida parapsilosis by PCR Not Detected (Not Detect); Candida tropicalis by PCR Not Detected (Not Detect); Enterobacter cloacae Cmplx PCR Not Detected (Not Detect); Enterobacteriaceae by PCR Not Detected (Not Detect); Enterococcus by PCR Not Detected (Not Detect); Escherichia coli by PCR Not Detected (Not Detect); Klebsiella oxytoca by PCR Not Detected (Not Detect); Klebsiella pneumoniae by PCR Not Detected (Not Detect); Proteus by PCR Not Detected (Not Detect); Pseudomonas aeruginosa by PCR Not Detected (Not Detect); Serratia marcescens by PCR Not Detected (Not Detect); Staphylococcus aureus by PCR DETECTED (Not Detect); Streptococcus agalactiae(B)PCR Not Detected (Not Detect); Streptococcus by PCR Not Detected (Not Detect); Streptococcus pneumoniae PCR Not Detected (Not Detect); Streptococcus pyogenes (A) PCR Not Detected (Not Detect); mecA Methicillin-Resist Gene Not Detected (Not Detect)
[2021-03-24] MEDS ORDERED: Haloperidol Lactate 5 MG/ML VIAL IM ONE ×2 (11:35→12:10)
[2021-03-24] MEDS ORDERED: Haloperidol Lactate 5 MG/ML VIAL IVP ONE (11:39)
[2021-03-24] MEDS ORDERED: Cefepime HCl 1,000 MG in Water for inj. (sterile) 10 ML IVP SCH (14:00)
[2021-03-24] MEDS ORDERED: Cholestyramine 4 GM POWD.PACK PO PRN (16:17)
[2021-03-24] MEDS ORDERED: Magic Mouthwash 10 ML UD Cup PO SCH (17:30)
[2021-03-24] MEDS: Nystatin SUSP 5 ML UD.LIQ PO SCH ×2 (18:35→20:22)
[2021-03-24] MEDS: Magnesium Oxide 400 MG TABLET PO SCH (20:22)
[2021-03-24] MEDS ORDERED: QUEtiapine Fumarate 25 MG TABLET PO SCH (21:00)
[2021-03-25] MEDS: Levothyroxine 25 MCG TABLET PO SCH (06:13)
[2021-03-25] MEDS ORDERED: QUEtiapine Fumarate 25 MG TABLET PO SCH (09:00)
[2021-03-25] MEDS: Nystatin SUSP 5 ML UD.LIQ PO SCH ×4 (09:10→20:16)
[2021-03-25] MEDS: Cholecalciferol (D-3) 1,000 UNIT (25MCG) TABLET PO SCH (09:10)
[2021-03-25] MEDS: atenoloL 50 MG TABLET PO SCH (09:10)
[2021-03-25] MEDS: Cyanocobalamin (B-12) 1,000 MCG TABLET PO SCH (09:10)
[2021-03-25] MEDS: PARoxetine 10 MG TABLET PO SCH (09:10)
[2021-03-25] MEDS: Loratadine 10 MG TABLET PO SCH (09:10)
[2021-03-25] MEDS: Magnesium Oxide 400 MG TABLET PO SCH ×2 (09:10→20:15)
[2021-03-25] MEDS ORDERED: Cefepime HCl 1,000 MG in Water for inj. (sterile) 10 ML IVP SCH (16:00)
[2021-03-25] MEDS: 0.9 % Sodium Chloride 1,000 ML IVC SCH (17:43)
[2021-03-25] MEDS: QUEtiapine Fumarate 25 MG TABLET PO SCH (20:16)
[2021-03-26 03:17] LABS: Basophils % 0.1 %; Eosinophils % 0.3 %; Hematocrit 31.5 % (37.5-50.1); Hemoglobin 9.8 g/dL (12.9-16.9); Immature Granulocytes % 0.8 % (0-4); Lymphocytes # 0.7 K/mcL (0.6-4.6); Lymphocytes % 8.1 %; Mean Corpuscular HGB Conc 31.1 g/dL (31.6-35.5); Mean Corpuscular Hemoglobin 30.9 pg (28.0-33.3); Mean Corpuscular Volume 99.4 fL (83.0-100.0); Mean Platelet Volume 11.6 fL (9.4-12.4); Monocytes # 0.3 K/mcL (0.0-1.3); Monocytes % 3.2 %; Neutrophils # 7.9 K/mcL (1.6-8.9); Platelet Count 144 K/mcL (140-400); Red Blood Count 3.17 M/mcL (4.19-5.50); Red Cell Distribution Width 18.6 % (11.5-14.5); Segmented Neutrophils % 87.5 %
[2021-03-26 03:57] LABS: Albumin 1.9 g/dL (3.5-5.7); Albumin/Globulin Ratio 0.7 (1.1-2.2); Bilirubin,Total 0.8 mg/dL (0.3-1.0); Calcium 6.9 mg/dL (8.6-10.3); Globulin 2.8 g/dL (2.4-3.5); Magnesium 1.4 mg/dL (1.6-2.6); Total Protein 4.7 g/dL (6.4-8.9)
[2021-03-26] MEDS: Levothyroxine 25 MCG TABLET PO SCH (04:57)
[2021-03-26] MEDS: Cyanocobalamin (B-12) 1,000 MCG TABLET PO SCH (09:52)
[2021-03-26] MEDS: atenoloL 50 MG TABLET PO SCH (09:52)
[2021-03-26] MEDS: Magnesium Oxide 400 MG TABLET PO SCH ×2 (09:53→20:49)
[2021-03-26] MEDS: PARoxetine 10 MG TABLET PO SCH (09:53)
[2021-03-26] MEDS: Loratadine 10 MG TABLET PO SCH (09:53)
[2021-03-26] MEDS: Nystatin SUSP 5 ML UD.LIQ PO SCH ×4 (09:53→20:48)
[2021-03-26] MEDS: Aspirin 81 MG TAB.CHEW PO SCH (09:53)
[2021-03-26] MEDS: Cholecalciferol (D-3) 1,000 UNIT (25MCG) TABLET PO SCH (09:53)
[2021-03-26] MEDS: 0.9 % Sodium Chloride 1,000 ML IVC SCH (09:53)
[2021-03-26] MEDS: QUEtiapine Fumarate 25 MG TABLET PO SCH ×2 (12:28→20:50)
[2021-03-26] MEDS: Cefepime HCl 1,000 MG in 0.9 % Sodium Chloride Mini Bag 100 ML IVPB SCH (13:52)
[2021-03-27] MEDS: Cefepime HCl 1,000 MG in 0.9 % Sodium Chloride Mini Bag 100 ML IVPB SCH (05:15)
[2021-03-27] MEDS: Levothyroxine 25 MCG TABLET PO SCH (05:22)
[2021-03-27 06:33] LABS: Basophils % 0.1 %; Eosinophils # 0.1 K/mcL (0.0-0.6); Eosinophils % 0.5 %; Hematocrit 33.7 % (37.5-50.1); Hemoglobin 10.6 g/dL (12.9-16.9); Immature Granulocytes % 0.7 % (0-4); Lymphocytes % 11.2 %; Mean Corpuscular HGB Conc 31.5 g/dL (31.6-35.5); Mean Corpuscular Hemoglobin 31.1 pg (28.0-33.3); Mean Corpuscular Volume 98.8 fL (83.0-100.0); Monocytes # 0.3 K/mcL (0.0-1.3); Neutrophils # 7.8 K/mcL (1.6-8.9); Platelet Count 177 K/mcL (140-400); Red Blood Count 3.41 M/mcL (4.19-5.50); Red Cell Distribution Width 18.8 % (11.5-14.5); Segmented Neutrophils % 84.5 %; White Blood Count 9.2 K/mcL (4.3-11.1)
[2021-03-27 06:54] LABS: Albumin 2.3 g/dL (3.5-5.7); Albumin/Globulin Ratio 0.8 (1.1-2.2); Bilirubin,Total 0.9 mg/dL (0.3-1.0); Calcium 7.7 mg/dL (8.6-10.3); Total Protein 5.3 g/dL (6.4-8.9)
[2021-03-27] MEDS: Aspirin 81 MG TAB.CHEW PO SCH (09:18)
[2021-03-27] MEDS: PARoxetine 10 MG TABLET PO SCH (09:18)
[2021-03-27] MEDS: Nystatin SUSP 5 ML UD.LIQ PO SCH ×4 (09:18→21:42)
[2021-03-27] MEDS: Apixaban 5 MG TABLET PO SCH ×2 (09:18→21:39)
[2021-03-27] MEDS: Loratadine 10 MG TABLET PO SCH (09:18)
[2021-03-27] MEDS: Magnesium Oxide 400 MG TABLET PO SCH ×2 (09:18→21:42)
[2021-03-27] MEDS: atenoloL 50 MG TABLET PO SCH (09:18)
[2021-03-27] MEDS: QUEtiapine Fumarate 25 MG TABLET PO SCH ×2 (09:19→21:39)
[2021-03-27] MEDS: Cholecalciferol (D-3) 1,000 UNIT (25MCG) TABLET PO SCH (09:19)
[2021-03-27] MEDS: Cyanocobalamin (B-12) 1,000 MCG TABLET PO SCH (09:19)
[2021-03-27] MEDS: ceFAZolin 1,000 MG in 0.9 % Sodium Chloride Mini Bag 100 ML IVPB SCH ×2 (10:18→21:49)
[2021-03-27] MEDS ORDERED: Haloperidol Oral Conc 10 MG/5 ML UDC PO ONE (10:54)
[2021-03-27] MEDS: 0.9 % Sodium Chloride 1,000 ML IVC SCH (12:08)
[2021-03-27 13:04] LABS: Adenovirus F 40/41 PCR Not detected (Not detect); Astrovirus PCR Not detected (Not detect); C.difficile Toxin A/B Gene PCR Not detected (Not detect); Campylobacter by PCR Not detected (Not detect); Cryptosporidium by PCR Not detected (Not detect); Cyclospora cayetanensis PCR Not detected (Not detect); E. coli O157 by PCR Not detected (Not detect); Entamoeba histolytica PCR Not detected (Not detect); Enteroaggregative E.coli(EAEC) Not detected (Not detect); Enteropathogenic E.coli(EPEC) Not detected (Not detect); Enterotoxigenic E.coli (ETEC) Not detected (Not detect); Giardia lamblia PCR Not detected (Not detect); Norovirus GI/GII PCR Not detected (Not detect); Plesiomonas shigelloides PCR Not detected (Not detect); Rotavirus A PCR Not detected (Not detect); Salmonella PCR Not detected (Not detect); Sapovirus PCR Not detected (Not detect); Shig/EnteroinvasiveE coli EIEC Not detected (Not detect); Shigalike tox-prod E coli STEC Not detected (Not detect); Vibrio PCR Not detected (Not detect); Vibrio cholerae PCR Not detected (Not detect); Yersinia enterocolitica PCR Not detected (Not detect)
[2021-03-28 01:08] LABS: White Blood Count 7.5 K/mcL (4.3-11.1)
[2021-03-28 01:09] LABS: Eosinophils # 0.1 K/mcL (0.0-0.6); Eosinophils % 1.5 %; Hematocrit 27.4 % (37.5-50.1); Immature Granulocytes % 0.8 % (0-4); Lymphocytes # 0.7 K/mcL (0.6-4.6); Lymphocytes % 9.4 %; Mean Corpuscular HGB Conc 32.5 g/dL (31.6-35.5); Mean Corpuscular Hemoglobin 31.6 pg (28.0-33.3); Mean Corpuscular Volume 97.2 fL (83.0-100.0); Mean Platelet Volume 11.7 fL (9.4-12.4); Monocytes # 0.3 K/mcL (0.0-1.3); Monocytes % 3.5 %; Neutrophils # 6.4 K/mcL (1.6-8.9); Platelet Count 163 K/mcL (140-400); Red Blood Count 2.82 M/mcL (4.19-5.50); Red Cell Distribution Width 18.6 % (11.5-14.5); Segmented Neutrophils % 84.8 %
[2021-03-28 01:10] LABS: Hemoglobin 8.9 g/dL (12.9-16.9)
[2021-03-28 01:28] LABS: Albumin/Globulin Ratio 0.7 (1.1-2.2); Bilirubin,Total 0.6 mg/dL (0.3-1.0); Calcium 7.4 mg/dL (8.6-10.3); Globulin 2.9 g/dL (2.4-3.5); Potassium 3.9 mEq/L (3.5-5.1); Total Protein 4.9 g/dL (6.4-8.9)
[2021-03-28] MEDS: Levothyroxine 25 MCG TABLET PO SCH (05:44)
[2021-03-28] MEDS: Loratadine 10 MG TABLET PO SCH (08:15)
[2021-03-28] MEDS: Aspirin 81 MG TAB.CHEW PO SCH (08:15)
[2021-03-28] MEDS: Magnesium Oxide 400 MG TABLET PO SCH ×2 (08:16→23:40)
[2021-03-28] MEDS: Apixaban 5 MG TABLET PO SCH ×2 (08:16→23:39)
[2021-03-28] MEDS: Nystatin SUSP 5 ML UD.LIQ PO SCH ×4 (08:16→23:38)
[2021-03-28] MEDS: PARoxetine 10 MG TABLET PO SCH (08:16)
[2021-03-28] MEDS: Cyanocobalamin (B-12) 1,000 MCG TABLET PO SCH (08:17)
[2021-03-28] MEDS: atenoloL 50 MG TABLET PO SCH (08:17)
[2021-03-28] MEDS: Cholecalciferol (D-3) 1,000 UNIT (25MCG) TABLET PO SCH (08:17)
[2021-03-28] MEDS: ceFAZolin 1,000 MG in 0.9 % Sodium Chloride Mini Bag 100 ML IVPB SCH (08:24)
[2021-03-28] MEDS: QUEtiapine Fumarate 25 MG TABLET PO SCH ×2 (08:25→23:38)
[2021-03-29] MEDS: ceFAZolin 1,000 MG in 0.9 % Sodium Chloride Mini Bag 100 ML IVPB SCH ×3 (01:32→22:25)
[2021-03-29] MEDS: Levothyroxine 25 MCG TABLET PO SCH (06:02)
[2021-03-29] MEDS: Aspirin 81 MG TAB.CHEW PO SCH (08:39)
[2021-03-29] MEDS: atenoloL 50 MG TABLET PO SCH (08:40)
[2021-03-29] MEDS: PARoxetine 10 MG TABLET PO SCH (08:40)
[2021-03-29] MEDS: Loratadine 10 MG TABLET PO SCH (08:40)
[2021-03-29] MEDS: Apixaban 5 MG TABLET PO SCH ×2 (08:41→22:26)
[2021-03-29] MEDS: Nystatin SUSP 5 ML UD.LIQ PO SCH ×4 (08:42→22:25)
[2021-03-29] MEDS: Cholecalciferol (D-3) 1,000 UNIT (25MCG) TABLET PO SCH (08:42)
[2021-03-29] MEDS: Cyanocobalamin (B-12) 1,000 MCG TABLET PO SCH (08:42)
[2021-03-29] MEDS: Magnesium Oxide 400 MG TABLET PO SCH ×2 (08:42→22:26)
[2021-03-29] MEDS: QUEtiapine Fumarate 25 MG TABLET PO SCH ×2 (08:42→22:26)
[2021-03-29] MEDS ORDERED: Haloperidol Oral Conc 10 MG/5 ML UDC PO PRN (09:19)
[2021-03-30] MEDS: Levothyroxine 25 MCG TABLET PO SCH (04:41)
[2021-03-30] MEDS ORDERED: traZODone 50 MG TABLET PO SCH (09:00)
[2021-03-30] MEDS: Cholecalciferol (D-3) 1,000 UNIT (25MCG) TABLET PO SCH (10:33)
[2021-03-30] MEDS: Apixaban 5 MG TABLET PO SCH (10:33)
[2021-03-30] MEDS: Cyanocobalamin (B-12) 1,000 MCG TABLET PO SCH (10:34)
[2021-03-30] MEDS: QUEtiapine Fumarate 25 MG TABLET PO SCH (10:34)
[2021-03-30] MEDS: Aspirin 81 MG TAB.CHEW PO SCH (10:34)
[2021-03-30] MEDS: PARoxetine 10 MG TABLET PO SCH (10:34)
[2021-03-30] MEDS: Magnesium Oxide 400 MG TABLET PO SCH (10:35)
[2021-03-30] MEDS: Loratadine 10 MG TABLET PO SCH (10:35)
[2021-03-30] MEDS: ceFAZolin 1,000 MG in 0.9 % Sodium Chloride Mini Bag 100 ML IVPB SCH (10:35)
[2021-03-30] MEDS: atenoloL 50 MG TABLET PO SCH (10:35)
[2021-03-30] MEDS: Nystatin SUSP 5 ML UD.LIQ PO SCH ×3 (10:42→17:07)
[2021-03-30 16:21] LABS: Adenovirus Not Detected (Not Detect); Bordetella Pertussis Not Detected (Not Detect); Chlamydophila pneumoniae Not Detected (Not Detect); Coronavirus 229E Not Detected (Not Detect); Coronavirus HKU1 Not Detected (Not Detect); Coronavirus NL63 Not Detected (Not Detect); Coronavirus OC43 Not Detected (Not Detect); Human Metapneumovirus Not Detected (Not Detect); Human Rhinovirus/Enterovirus Not Detected (Not Detect); Influenza A Subtype 2009 H1 Not Detected (Not Detect); Influenza B Not Detected (Not Detect); Mycoplasma pneumoniae Not Detected (Not Detect); Parainfluenza Virus 1 Not Detected (Not Detect); Parainfluenza Virus 2 Not Detected (Not Detect); Parainfluenza Virus 3 Not Detected (Not Detect); Parainfluenza Virus 4 Not Detected (Not Detect); Respiratory Syncytial Virus Not Detected (Not Detect); SARS-CoV-2 Not Detected (Not Detect)
[2021-03-30 19:21] VITALS: BP 153/69; PULSE 82; TEMP 97.9; O2SAT 94
== END 2021-03-30 21:53 | DRG 871 ==
LOC: 2ANU 09:40 → EMEROOARM 09:40 → 2ANU 20:41 → SUATTDRO 22:49 → 2ANU 03-29 19:16
PROVIDERS: ADMIT Student in an Organized Health Care Education/Training Program; ATTEND Internal Medicine